=== PATIENT | female | born 1950 | race African-American/Black ===

== ENCOUNTER 2017-03-17 14:52 | Inpatient (IN) | payer MEDICARE, OTHER ==
[~2017-03-17] VITALS: Ht 154.9 cm; Wt 47.6 kg
--- NOTE | 2017-03-17 15:39 | NUR ---
PT BIB private Ambulance, reports pt has had increasing confusion and wandering. Pt has no complaints, no distress noted.
[2017-03-17 15:42] LABS: BASOPHILS % (AUTO) 0.4 % (0.0-2.0); EOSINOPHILS # (AUTO) 0.2 K/uL (0.0-0.7); EOSINOPHILS % (AUTO) 4.3 % (0.0-7.0); HEMATOCRIT 32.8 % (37-47); HEMOGLOBIN 10.4 G/DL (12.0-16.0); LYMPHOCYTES # (AUTO) 1.2 K/UL (0.8-4.8); LYMPHOCYTES % (AUTO) 25.8 % (20.5-51.5); MEAN CORPUSCULAR HGB CONC 32 g/dL (32.0-37.0); MEAN CORPUSCULAR VOLUME 100.8 FL (81.0-99.0); MONOCYTES # (AUTO) 0.3 K/UL (0.1-1.30); MONOCYTES % (AUTO) 5.9 % (0.0-11.0); NEUTROPHILS # (AUTO) 2.8 K/UL (1.8-8.9); NEUTROPHILS % (AUTO) 63.6 % (38.5-71.5); PLATELET COUNT (AUTO) 246 K/UL (150-450); RED BLOOD CELL COUNT(AUTO) 3.25 MIL/UL (4.2-5.4); WHITE BLOOD COUNT (AUTO) 4.5 K/UL (4.0-11.2)
[2017-03-17] MEDS ORDERED: FLUORESCEIN SODIUM 1 MG STRIP OP ONE (15:45)
[2017-03-17] MEDS ORDERED: TETRACAINE HCL 0.5% OPHT DROP 2 ML BOTTLE OP ONE (15:45)
[2017-03-17 15:52] LABS: CARBON DIOXIDE 30 mmol/L (21-32); CHLORIDE 104 mmol/L (98-107); CREATININE 0.8 mg/dL (0.6-1.3); GLUCOSE 115 mg/dL (74-106); POTASSIUM 4.5 mmol/L (3.5-5.1); UREA NITROGEN, BLOOD 13 mg/dL (7-18)
[2017-03-17] MEDS ORDERED: IBUP-1954 PO (15:54)
[2017-03-17] MEDS ORDERED: ABILIFY PO (15:54)
[2017-03-17] MEDS ORDERED: HYDR-3326 PO (15:54)
[2017-03-17] MEDS ORDERED: FLEXERIL PO (15:54)
[2017-03-17] MEDS ORDERED: HYDR25TA4 PO (15:54)
[2017-03-17] MEDS ORDERED: AMLO5TAB4 PO (15:54)
[2017-03-17] MEDS ORDERED: NITR100C11 PO (15:54)
[2017-03-17 15:58] LABS: ETHANOL < 3 MG/DL (0-0)
[2017-03-17] MEDS ORDERED: HYDROCODONE/APAP 5-325MG TABLET PO ONE (16:00)
[2017-03-17] MEDS ORDERED: HYDROCODONE/APAP 5-325MG TABLET ONE (16:03)
[2017-03-17 16:05] LABS: THYROID STIMULATING HORMONE 0.668 mIU/mL (0.358-3.740)
[2017-03-17 16:13] LABS: ACETAMINOPHEN < 2.0 ug/mL (10-30); ALANINE AMINOTRANSFERASE 17 U/L (14-59); ALKALINE PHOSPHATASE 77 U/L (50-136); ASPARTATE AMINOTRANSFERASE 18 U/L (15-37); BILIRUBIN,DIRECT 0.1 mg/dL (0.0-0.2); BILIRUBIN,TOTAL 0.3 mg/dL (0.2-1.0); TOTAL PROTEIN, SERUM 6.4 g/dL (6.4-8.2)
--- NOTE | 2017-03-17 16:17 | NUR ---
REFUSED CT/RADIOLOGY MD CHILD IS AWARE
[2017-03-17 16:34] LABS: *BILIRUBIN,URIN NEGATIVE (NEGATIVE); *BLOOD, URINE Trace-intact (NEGATIVE); *CLARITY,URINE CLEAR (CLEAR); *COLOR,URINE YELLOW (YELLOW); *KETONES,URINE NEGATIVE (NEGATIVE); *PROTEIN,URINE NEGATIVE (NEGATIVE); *UROBILINOGEN,URINE 0.2 E.U./dl (NORMAL); LEUKOCYTE ESTERASE ,URINE 1+ (NEGATIVE); NITRITE, URINE NEGATIVE (NEGATIVE); UGLUCOSE NEGATIVE (NEGATIVE)
[2017-03-17 16:42] LABS: *AMPHETAMINE, URINE NEGATIVE (NEGATIVE); *BARBITURATE, URINE NEGATIVE (NEGATIVE); *CANNABINOID, URINE NEGATIVE (NEGATIVE); *COCCAINE, URINE POSITIVE (NEGATIVE); *OPIATE, URINE POSITIVE (NEGATIVE); *PHENCYCLIDINE SCREEN,URINE NEGATIVE (NEGATIVE)
--- NOTE | 2017-03-17 16:43 | NUR ---
ATTEMPTED TO GIVE REPORT X 2. WILL CALL BACK
[2017-03-17 16:45] LABS: BACTERIA,URINE FEW /HPF (NONE SEEN); RBC,URINE 0-3 /HPF (0-3); SQUAMOUS EPITHELIAL CELL,UR FEW /HPF (NONE SEEN)
--- NOTE | 2017-03-17 16:49 | NUR ---
REPORT GIVEN TO NNAMDI AWARE OF PT'S CURRENT CONDITION. WILL CONTINUE FURTHER PLAN OF CARE.
[2017-03-17] MEDS ORDERED: MAGNESIUM HYDROXIDE 30 ML LIQUID UDC PO PRN (17:45)
[2017-03-17] MEDS ORDERED: LORAZEPAM 0.5 MG TABLET PO PRN (17:45)
[2017-03-17] MEDS ORDERED: ACETAMINOPHEN 325 MG TABLET PO PRN (17:45)
[2017-03-17] MEDS ORDERED: FLEXERIL 10 MG PO PRN (19:00)
[2017-03-17 19:09] LABS: IRON, SERUM 152 ug/dL (50-175)
[2017-03-17] MEDS: NITROFURANTOIN/NITROFURAN MAC 100 MG CAPSULE PO SCH (20:23)
[2017-03-17] MEDS: HYDROCODONE/APAP 5-325MG TABLET PO PRN (20:24)
[2017-03-17 20:34] VITALS: BP 135/59
--- NOTE | 2017-03-18 00:06 | NUR ---
PATIENT IS A/O X2. SHE STATED THAT SHE CONTINUE HEARING VOICES TELLING HER TO "WALK INTO TRAFFIC". SHE ALSO STATED THAT THE VOICES ARE ALSO "CALLING HER NAMES". HOWEVER, SHE DENIED SI OR PLAN TO HARM HERSELF. PATIENT IS TAKING MACROBID 100MG FOR UTI. PATIENT WAS REDIRECTED. SHE C/O LOWER BACK PAIN 9/10 IN THE PAIN INTENSITY SCALE. NORCO 5/325MG WAS GIVEN FOR PAIN. REASSESSMENT WAS EFFECTIVE. PATIENT IS RESTING IN HER BED COMFORTABLE. SHE IS MEDICATION COMPLIANT AT THIS TIME.
[2017-03-18] MEDS: HYDROCODONE/APAP 5-325MG TABLET PO PRN ×4 (03:27→23:02)
[2017-03-18 07:30] VITALS: BP 170/74
[2017-03-18] MEDS: HYDROCHLOROTHIAZIDE 25 MG TABLET PO SCH (08:18)
[2017-03-18] MEDS: NITROFURANTOIN/NITROFURAN MAC 100 MG CAPSULE PO SCH ×2 (08:18→20:08)
[2017-03-18] MEDS: AMLODIPINE 5 MG TABLET PO SCH (08:18)
[2017-03-18] MEDS ORDERED: NITROFURANTOIN/NITROFURAN MAC 100 MG CAPSULE PO SCH (09:00)
[2017-03-18] MEDS ORDERED: hydrALAZINE HCL 25 MG TABLET PO PRN (11:00)
[2017-03-18] MEDS: CYCLOBENZAPRINE HCL 10 MG TABLET PO PRN ×2 (14:41→20:45)
[2017-03-18 16:00] VITALS: BP 135/66
[2017-03-18 20:39] VITALS: BP 138/63
[2017-03-18] MEDS: TRAZODONE 50 MG TABLET PO SCH (21:14)
[2017-03-18] MEDS: risperiDONE 1 MG TABLET PO SCH (21:14)
[2017-03-18] MEDS ORDERED: TRAZODONE 50 MG TABLET ONE (21:21)
[2017-03-18] MEDS ORDERED: risperiDONE 1 MG TABLET ONE (21:21)
--- NOTE | 2017-03-19 01:05 | NUR ---
GPS: Pt.is awake,agitated,demanding and easily irritable at this time. Re-directed prn. Refused Ativan 1mg PO for anxiety/agitation when offered. Will continue to monitor for further escalation of behavior.
[2017-03-19] MEDS: LORAZEPAM 1 MG TABLET PO PRN (02:49)
[2017-03-19 07:30] VITALS: BP 131/77
[2017-03-19] MEDS: AMLODIPINE 5 MG TABLET PO SCH (09:07)
[2017-03-19] MEDS: risperiDONE 1 MG TABLET PO SCH ×2 (09:08→20:05)
[2017-03-19] MEDS: NITROFURANTOIN/NITROFURAN MAC 100 MG CAPSULE PO SCH ×2 (09:08→20:05)
[2017-03-19] MEDS: NICOTINE 14 MG/24HR PATCH TD SCH (09:08)
[2017-03-19] MEDS: HYDROCHLOROTHIAZIDE 25 MG TABLET PO SCH (09:08)
--- NOTE | 2017-03-19 11:10 | NUR ---
1050 Discharged instructions given to patient and son regarding medications to continue at home, both of them verbalized understanding. psychiatris medications called in to patient pharmacy. 1055 Brought patient to parking area per w/c , alert and ox3, denies SI/HI, no hallucinations/ no delusions noted. 1100 Patient went home with son via private car stable condition. Addendum: 03/19/17 at 1158 by [facility] BRANDON DAHL Disregard charted wrong patient.
[2017-03-19] MEDS: CARISOPRODOL 350 MG TABLET PO PRN ×2 (12:12→20:57)
[2017-03-19 15:00] VITALS: BP 107/66
[2017-03-19] MEDS: HYDROCODONE/APAP 5-325MG TABLET PO PRN ×2 (15:27→23:25)
--- NOTE | 2017-03-19 17:21 | NUR ---
TRIGGED FOR LOW BMI 18.5. PATIENT IS 66 Y/O FEMALE WHO PRESENT FOR BEHAVIOR ESCALATION HX: HTN,UTI,SCHIZOPHRENIA, SUBSTANCE USE,MRSA TOLERATING CURRENT DIET(REGULAR)EATING 75-100% OF MEALS BMI 18.5-UNDERWEIGHT,PHYSICAL ASSESSMENT REPORT SUGGEST MILD/MODERATE FAT AND MUSCLE LOSS PATIENT IS RECEIVING BOOST ONCE,REC CONTINUE WITH CURRENT DIETARY SUPPLEMENT BOWEL SOUND PRESENT SKIN INTACT LABS:03/17 RBC-3.25,HGB/HCT-10.4/32.8 NUTRITION DIAGNOSIS UNDERWEIGHT RELATED TO ALTERED MENTAL STATUS EVIDENCED BY BMI 18.5 INTERVENTION ENCOURAGE GOOD PO INTAKE,BOOST ONCE MONITOR;PO INTAKE,WT,NEW LABS Addendum: 03/19/17 at [address] Amended: Links added.
[2017-03-19] MEDS: TRAZODONE 50 MG TABLET PO SCH (20:04)
[2017-03-19 20:14] VITALS: BP 112/58
[2017-03-20] MEDS: HYDROCODONE/APAP 5-325MG TABLET PO PRN ×3 (06:36→23:53)
--- NOTE | 2017-03-20 06:45 | NUR ---
PT C/O LOWER BACK PAIN AND REQUESTED FOR NORCO, MED GIVEN ORDERED.
[2017-03-20 07:30] VITALS: BP 111/61
[2017-03-20 08:08] LABS: BILIRUBIN,TOTAL 0.5 mg/dL (0.2-1.0); CREATININE 0.8 mg/dL (0.6-1.3); MAGNESIUM 1.7 mg/dL (1.8-2.4); POTASSIUM 4.6 mmol/L (3.5-5.1); TOTAL PROTEIN, SERUM 6.4 g/dL (6.4-8.2)
[2017-03-20] MEDS: AMLODIPINE 5 MG TABLET PO SCH (08:14)
[2017-03-20] MEDS: risperiDONE 1 MG TABLET PO SCH ×2 (08:14→20:22)
[2017-03-20] MEDS: NITROFURANTOIN/NITROFURAN MAC 100 MG CAPSULE PO SCH ×2 (08:14→20:22)
[2017-03-20] MEDS: HYDROCHLOROTHIAZIDE 25 MG TABLET PO SCH (08:15)
[2017-03-20 08:21] LABS: BASOPHILS % (AUTO) 0.9 % (0.0-2.0); EOSINOPHILS # (AUTO) 0.3 K/uL (0.0-0.7); EOSINOPHILS % (AUTO) 7.4 % (0.0-7.0); HEMATOCRIT 31.3 % (31.2-41.9); HEMOGLOBIN 10.2 g/dL (10.9-14.3); LYMPHOCYTES # (AUTO) 1.2 K/uL (20.0-40.0); LYMPHOCYTES % (AUTO) 32.6 % (20.5-51.5); MEAN CORPUSCULAR HEMOGLOBIN 32.5 uug (24.7-32.8); MEAN CORPUSCULAR HGB CONC 33 g/dL (32.3-35.6); MEAN CORPUSCULAR VOLUME 99.4 fL (75.5-95.3); MONOCYTES # (AUTO) 0.3 K/uL (2.0-10.0); MONOCYTES % (AUTO) 8.4 % (0.0-11.0); NEUTROPHILS # (AUTO) 1.9 K/uL (1.8-8.9); NEUTROPHILS % (AUTO) 50.7 % (38.5-71.5); PLATELET COUNT (AUTO) 212 K/uL (179-408); RED BLOOD CELL COUNT(AUTO) 3.15 MIL/uL (3.63-4.92); WHITE BLOOD COUNT (AUTO) 3.7 K/uL (3.8-11.8)
[2017-03-20] MEDS: NICOTINE 14 MG/24HR PATCH TD SCH (08:21)
[2017-03-20] MEDS ORDERED: MAGNESIUM OXIDE 400 MG TABLET PO ONE (10:30)
[2017-03-20] MEDS: LORAZEPAM 1 MG TABLET PO PRN (11:45)
[2017-03-20 15:00] VITALS: BP 129/74
--- NOTE | 2017-03-20 15:07 | NUR ---
Initial discharge instructions: Pt reports to reside at home with her daughter [[address], [place],[address]].Per pt,she would like to return home upon discharge.IVORY attempted to contact pt's daughter, Aydee Smith [phone] multiple times and has left voicemail,but no answer.IVORY will speak with pt,family,and MD regarding appropriate discharge plans.IVORY will form a safe and proper discharge.
[2017-03-20] MEDS: TRAZODONE 50 MG TABLET PO SCH (20:22)
[2017-03-20] MEDS: CARISOPRODOL 350 MG TABLET PO PRN (20:27)
[2017-03-20 21:05] VITALS: BP 116/68
[2017-03-21] MEDS: CARISOPRODOL 350 MG TABLET PO PRN ×3 (02:31→22:07)
[2017-03-21 07:30] VITALS: BP 121/68
[2017-03-21] MEDS: HYDROCHLOROTHIAZIDE 25 MG TABLET PO SCH (08:19)
[2017-03-21] MEDS: NITROFURANTOIN/NITROFURAN MAC 100 MG CAPSULE PO SCH (08:19)
[2017-03-21] MEDS: AMLODIPINE 5 MG TABLET PO SCH (08:19)
[2017-03-21] MEDS: NICOTINE 14 MG/24HR PATCH TD SCH (08:20)
[2017-03-21] MEDS: risperiDONE 1 MG TABLET PO SCH ×2 (08:20→20:45)
[2017-03-21 15:13] VITALS: BP 129/73
[2017-03-21] MEDS: HYDROCODONE/APAP 5-325MG TABLET PO PRN (19:39)
[2017-03-21 20:06] VITALS: BP 123/65
[2017-03-21] MEDS: TRAZODONE 50 MG TABLET PO SCH (20:45)
--- NOTE | 2017-03-22 01:44 | NUR ---
Pt AWOKE AGITATED, YELLING AND SCREAMING. Pt DEMANDED MORE PAIN MEDICATION AND MORE SNACKS. Pt EDUCATED ON MEDICATION FREQUENCY AND THAT SNACK TIME IS OVER, SHE'D ALREADY HAD SEVERAL SNACKS AND JUICES THROUGHOUT THE SHIFT. Pt BECAME VERBALLY ABUSIVE AND YELLED, "FUCK YOU BITCH, YOU'RE !" TO THIS CUSTOMER ACCOUNT COORDINATOR. Pt BECOMES AGGRESSIVE WHEN LIMITS ARE SET, REQUIRES FREQUENT REDIRECTION.
[2017-03-22] MEDS: HYDROCODONE/APAP 5-325MG TABLET PO PRN ×2 (03:56→16:24)
[2017-03-22] MEDS: MAG HYDROX/AL HYDROX/SIMETH 30 ML LIQUID UDC PO PRN (04:41)
--- NOTE | 2017-03-22 05:41 | NUR ---
Pt C/O STOMACH UPSET AND HEARTBURN. MAALOX 30ml ADMINISTERED WITH GOOD EFFECT.
[2017-03-22 07:30] VITALS: BP 128/75
[2017-03-22] MEDS: NICOTINE 14 MG/24HR PATCH TD SCH (08:46)
[2017-03-22] MEDS: HYDROCHLOROTHIAZIDE 25 MG TABLET PO SCH (08:46)
[2017-03-22] MEDS: risperiDONE 1 MG TABLET PO SCH ×2 (08:47→20:17)
[2017-03-22] MEDS: AMLODIPINE 5 MG TABLET PO SCH (08:47)
[2017-03-22] MEDS: CARISOPRODOL 350 MG TABLET PO PRN (09:53)
[2017-03-22 15:18] VITALS: BP 128/64
--- NOTE | 2017-03-22 19:31 | NUR ---
PHARMACY NOTE: Pt REQUESTED A SOMA FOR 710 MUSCLE PAIN. SOMA 350mg WAS GIVEN TO Pt. UPON CHECKING Pt's WATER CUP, IT WAS NOTED Pt SPIT THE MEDICATION OUT INTO HER CUP. Pt STATED SHE "WANTED TO SAVE IT FOR LATER." SOMA WAS DISSOLVED INTO THE WATER BY THE TIME IT WAS NOTICED, RN UNABLE TO WASTE. MEDICAL ASSISTANT SECRETARY INTIRA AWARE.
[2017-03-22 20:06] VITALS: BP 121/55
--- NOTE | 2017-03-22 20:15 | NUR ---
PHARMACY NOTE: Pt STATED SHE WOULD TAKE HER REGULARLY SCHEDULED HS MEDS. RN SCANNED MEDS, OPENED THEM AND BROUGHT THEM TO HER FOR ADMINISTRATION, AT THAT TIME Pt REFUSED AND STATED, "GET THE HELL OUT OF MY ROOM." ADMITTED ATTORNEYS AWARE.
[2017-03-22] MEDS: TRAZODONE 50 MG TABLET PO SCH (20:17)
[2017-03-22] MEDS: TEMAZEPAM 7.5 MG CAPSULE PO PRN (21:37)
--- NOTE | 2017-03-23 06:34 | NUR ---
REFUSED SHOWER THIS MORNING. SLEPT 7 HOURS.
--- NOTE | 2017-03-23 08:28 | NUR ---
Poured Wall Foreman: SW has attempted to contact patient's daughter, Aydee Smith [phone] multiple times and have left voicemail's requesting a call back to discuss discharge plans. 03/17/17- SW called and left a voicemail. 03/19/17- SW called twice, but no answer. 03/20/17- SW called and left a second voicemail. 03/23/17- SW called and call was ignored to voicemail. SW left a third voicemail. Patient is not alert and oriented to provide any further family contact.
[2017-03-23] MEDS: risperiDONE 1 MG TABLET PO SCH ×2 (09:34→20:21)
[2017-03-23] MEDS: HYDROCHLOROTHIAZIDE 25 MG TABLET PO SCH (09:34)
[2017-03-23] MEDS: AMLODIPINE 5 MG TABLET PO SCH (09:34)
[2017-03-23] MEDS: NICOTINE 14 MG/24HR PATCH TD SCH (09:35)
[2017-03-23] MEDS: HYDROCODONE/APAP 5-325MG TABLET PO PRN ×3 (09:36→22:55)
--- NOTE | 2017-03-23 10:00 | NUR ---
Pt was asking for pain meds. Pt only took her NORCO meds. Pt was refusing her psych and routine meds. Spoke with pt and bargained with patient. Pt then took her medications.
[2017-03-23 10:57] VITALS: BP 135/71
[2017-03-23 16:00] VITALS: BP 139/65
--- NOTE | 2017-03-23 17:45 | NUR ---
GPS: NURSING NOTES: THOUGHT DISORDER: Pt hyperverbal talking to herself while walking in hallway through out the day.
[2017-03-23] MEDS: CARISOPRODOL 350 MG TABLET PO PRN (20:21)
[2017-03-23 20:30] VITALS: BP 132/61
[2017-03-23] MEDS ORDERED: TRAZODONE 100 MG TABLET PO SCH (21:00)
--- NOTE | 2017-03-23 22:00 | NUR ---
received to care, lying in bed, mostly isolative, but pleasant and cooperative, upon approach. no interactions noted with peers, but able to make her needs known, to staff. denies hearing voices, but was observed talking to herself. DEBORAH chapo was given at 2020, for lower back pain 01/15. by 2120, she reported good relief, 09/15. as of 2199, she appears to be asleep. no distress noted. will continue to monitor closely.
--- NOTE | 2017-03-23 22:55 | NUR ---
PRN norco given for lower back pain 01/15.
[2017-03-24] MEDS: TEMAZEPAM 7.5 MG CAPSULE PO PRN (01:13)
--- NOTE | 2017-03-24 01:13 | NUR ---
PRN restoril given for insomnia
--- NOTE | 2017-03-24 01:40 | NUR ---
appears to be asleep. no distress noted.
[2017-03-24] MEDS: HYDROCODONE/APAP 5-325MG TABLET PO PRN ×2 (06:04→14:50)
--- NOTE | 2017-03-24 06:43 | NUR ---
slept 5.5 hours, total. is now awake. asssited with AM care, and shower. PRN norco given at 0604, for lower back pain 02/15, with good results. no distress noted. will continue to monitor closely.
[2017-03-24] MEDS: MAG HYDROX/AL HYDROX/SIMETH 30 ML LIQUID UDC PO PRN (07:29)
[2017-03-24 07:30] VITALS: BP 121/65
[2017-03-24] MEDS: AMLODIPINE 5 MG TABLET PO SCH (08:44)
[2017-03-24] MEDS: HYDROCHLOROTHIAZIDE 25 MG TABLET PO SCH (08:44)
[2017-03-24] MEDS: NICOTINE 14 MG/24HR PATCH TD SCH (08:44)
[2017-03-24] MEDS ORDERED: risperiDONE 0.5 MG TABLET PO SCH (09:00)
[2017-03-24] MEDS: CARISOPRODOL 350 MG TABLET PO PRN (09:14)
--- NOTE | 2017-03-24 15:13 | NUR ---
DC Note: Patient will be discharged to [facility] [[place] [address];[phone]] via ambulance at 4:00 pm. Spoke with Barbara at the facility who stated they would accept the patient today. Patient is aware and agreeable with going to SNF for short term. SW spoke with patient's daughter, Aydee [phone] at 2:33 pm who reported the patient may return home or go to SNF. Daughter is unreliable and reported the SW could call and leave a voicemail if patient is discharged and "someone" would be home to open the home for the patient. However, due to this being an unsafe discharge plan placement was arranged. Daughter did not hand picker calls after, therefore SW left a voicemail including discharge plans. Patient will follow-up with (Mercantile Agent) and (Psychiatrist) at the facility. Patient was provided with a brief substance abuse intervention and referred to [facility] , [facility] , and [facility] . For smoking cessation, patient was referred to [employer] 800-LUNGUSA and [employer] [phone]. Addendum: 03/24/17 at 1601 by AUBREY DODSON Spoke with patient's daughter, Aydee [phone] at 4:00 pm she agreed to SNF placement for short term. IVORY filed an APS report for self neglect (Intake ID # [id number]]
[2017-03-24 16:16] VITALS: BP 134/70
--- NOTE | 2017-03-24 16:25 | NUR ---
PT IS BEING DISCHARGED. CALLED [employer] TO CANCEL WRIT HEARING ([phone]). THE TELEPHONE HOURS [phone]. NO ANSWERING MACHINE AVAILABLE. WILL ENDORSE TO NOTIFY TOMORROW
--- NOTE | 2017-03-24 17:05 | NUR ---
Pt D/C to [facility] with exit care packet, all belongings, and valuables. Pt is calm, cooperative, vital signs stable, skin intact, pt denies suicidal ideation and contracts for safety inside and outside the hospital. Report was given to Juana DAHL electronic coils supervisor at [facility]. Dr. Schaeffer (psychiatrist) and Paola (industrial paramedic) will continue with after care at the facility.
== END 2017-03-24 17:39 | DRG 885 ==
LOC: ER 14:52 → GPS 16:28
PROVIDERS: ADMIT Psychiatry & Neurology Psychiatry; ATTEND Internal Medicine
DX: F25.9 Schizoaffective disorder, unspecified (principal); E44.0 Moderate protein-calorie malnutrition; E83.39 Other disorders of phosphorus metabolism; E83.42 Hypomagnesemia; M41.9 Scoliosis, unspecified; R45.851 Suicidal ideations; F29 Unspecified psychosis not due to a substance or known physiological condition; N39.0 Urinary tract infection, site not specified; Z68.1 Body mass index [BMI] 19.9 or less, adult; F31.9 Bipolar disorder, unspecified; F17.210 Nicotine dependence, cigarettes, uncomplicated; D53.9 Nutritional anemia, unspecified; D72.819 Decreased white blood cell count, unspecified; I51.7 Cardiomegaly; G89.29 Other chronic pain; Z86.14 Personal history of Methicillin resistant Staphylococcus aureus infection; Z87.440 Personal history of urinary (tract) infections; Z90.49 Acquired absence of other specified parts of digestive tract; Z91.5 Personal history of self-harm; Z88.0 Allergy status to penicillin; R73.9 Hyperglycemia, unspecified; F14.11 Cocaine abuse, in remission; R82.6 Abnormal urine levels of substances chiefly nonmedicinal as to source
CPT/HCPCS: 36415; 70030-TC; 71010; 73560; 80307; 83550; 83605; 83735; 84100; 84443; 85025; 85730; 87040; 87086; 93005; 97116; 97530; A4663; G0480; G0480-TC

== ENCOUNTER 2021-12-04 14:11 | Inpatient (IN) | payer MEDICARE, OTHER ==
[~2021-12-04] VITALS: Ht 152.4 cm; Wt 45.4 kg
[~2021-12-04 14:11] MED LIST: AMLO5TAB4 PO; FLEXERIL PO; HYDR-3326 PO; HYDR25TA4 PO; IBUP-1954 PO; NITR100C11 PO
[2021-12-04] MEDS ORDERED: HYDROCODONE/APAP 5-325MG TABLET PO ONE (14:30)
[2021-12-04] MEDS ORDERED: CARISOPRODOL 350 MG TABLET PO ONE (14:30)
[2021-12-04] MEDS ORDERED: HYDROCODONE/APAP 5-325MG TABLET ONE (14:37)
[2021-12-04] MEDS ORDERED: CARISOPRODOL 350 MG TABLET ONE (14:37)
--- NOTE | 2021-12-04 14:39 | NUR ---
PT IS IN ROOM #5a. DR STOUT EVALUATED THE PT.
--- NOTE | 2021-12-04 14:48 | NUR ---
Pt is resting in bed,speaking on the phone.
[2021-12-04] MEDS ORDERED: PARO20TA7 PO (14:51)
[2021-12-04] MEDS ORDERED: BISA10SU61 RC (14:51)
[2021-12-04] MEDS ORDERED: MULT-594 PO (14:51)
[2021-12-04] MEDS ORDERED: ASPI81TA31 PO (14:51)
[2021-12-04] MEDS ORDERED: TEMA15CA PO (14:51)
[2021-12-04] MEDS ORDERED: AMLO10TA59 PO (14:51)
[2021-12-04] MEDS ORDERED: LISI10TA29 PO (14:51)
[2021-12-04] MEDS ORDERED: MAGN400O6 PO (14:51)
[2021-12-04] MEDS ORDERED: OLAN5TAB3 PO (14:51)
[2021-12-04] MEDS ORDERED: ACET-2154 PO (14:51)
[2021-12-04] MEDS ORDERED: ATOR20TA PO (14:51)
[2021-12-04] MEDS ORDERED: HYDR-3980 PO (14:51)
[2021-12-04] MEDS ORDERED: FAMO40TA7 PO (14:51)
[2021-12-04] MEDS ORDERED: NA P133E RC (14:51)
[2021-12-04] MEDS ORDERED: BACL10TA PO (14:51)
[2021-12-04] MEDS ORDERED: BISM262T15 PO (14:51)
[2021-12-04] MEDS ORDERED: LORAZEPAM 1 MG TABLET ONE (14:54)
[2021-12-04] MEDS ORDERED: LORAZEPAM 0.5 MG TABLET PO ONE (15:00)
[2021-12-04 15:09] LABS: *BILIRUBIN,URIN NEGATIVE (NEGATIVE); *CLARITY,URINE CLEAR (CLEAR); *COLOR,URINE YELLOW (YELLOW); *KETONES,URINE NEGATIVE (NEGATIVE); *UROBILINOGEN,URINE 0.2 E.U./dl (NORMAL); LEUKOCYTE ESTERASE ,URINE 1+ (NEGATIVE); NITRITE, URINE NEGATIVE (NEGATIVE); UGLUCOSE NEGATIVE (NEGATIVE)
[2021-12-04 15:12] LABS: *BLOOD, URINE TRACE (NEGATIVE)
[2021-12-04 15:17] LABS: *AMPHETAMINE, URINE NEGATIVE (NEGATIVE); *CANNABINOID, URINE NEGATIVE (NEGATIVE); *COCCAINE, URINE NEGATIVE (NEGATIVE); *OPIATE, URINE POSITIVE (NEGATIVE); *PHENCYCLIDINE SCREEN,URINE NEGATIVE (NEGATIVE)
--- NOTE | 2021-12-04 16:02 | NUR ---
PT is medically cleared by Dr Montano. Left massage for PET, Kaitlin Vieyra CATALYST UNIT OPERATOR.
[2021-12-04 16:03] LABS: HEMATOCRIT 34.4 % (31.2-41.9); MEAN CORPUSCULAR HEMOGLOBIN 32.8 uug (24.7-32.8); MEAN CORPUSCULAR VOLUME 100.9 fL (75.5-95.3); PLATELET COUNT (AUTO) 199 K/uL (179-408)
--- NOTE | 2021-12-04 16:14 | NUR ---
Spoke to PET fill plant operator, ETA 30-40 min.
[2021-12-04 16:15] LABS: CARBON DIOXIDE 29 mmol/L (21-32); CHLORIDE 102 mmol/L (98-107); CREATININE 0.8 mg/dL (0.6-1.3); GLUCOSE 99 mg/dL (74-106); POTASSIUM 5.1 mmol/L (3.5-5.1); UREA NITROGEN, BLOOD 27 mg/dL (7-18)
--- NOTE | 2021-12-04 16:15 | NUR ---
Provided snack pt ate w/ good appetite, watching TV.
[2021-12-04 16:21] LABS: ACETAMINOPHEN 3.9 ug/mL (10-30); ALANINE AMINOTRANSFERASE 25 U/L (14-59); ALKALINE PHOSPHATASE 83 U/L (50-136); ASPARTATE AMINOTRANSFERASE 16 U/L (15-37); BILIRUBIN,TOTAL 0.2 mg/dL (0.2-1.0); TOTAL PROTEIN, SERUM 6.9 g/dL (6.4-8.2)
[2021-12-04 17:02] LABS: BACTERIA,URINE FEW /HPF (NONE SEEN); RBC,URINE 0-3 /HPF (0-3); SQUAMOUS EPITHELIAL CELL,UR FEW /HPF (NONE SEEN)
[2021-12-04] MEDS ORDERED: LORAZEPAM 2 MG/1 ML VIAL ONE (17:08)
[2021-12-04] MEDS ORDERED: OLANZAPINE 10 MG VIAL IM ONE ×2 (17:08→17:30)
--- NOTE | 2021-12-04 17:20 | NUR ---
Kaitlin Vieyra LCSW evauated the pt. Pt placed on hold by PET information and data architect analyst for DTO and GD.
[2021-12-04] MEDS ORDERED: LORAZEPAM 2 MG/1 ML VIAL IM ONE (17:30)
--- NOTE | 2021-12-04 17:48 | NUR ---
Pt transfered to MHU room 137A, via [facility].
[2021-12-04 18:00] VITALS: BP 145/74
[2021-12-04] MEDS ORDERED: ACETAMINOPHEN 325 MG TABLET PO PRN (18:00)
[2021-12-04] MEDS ORDERED: ZOLPIDEM 5 MG TABLET PO PRN (18:00)
[2021-12-04] MEDS ORDERED: MAGNESIUM HYDROXIDE 30 ML LIQUID UDC PO PRN (18:00)
--- NOTE | 2021-12-04 18:25 | NUR ---
Admitted a case of 70 years old female from ER [facility] with history of hypertension, Gerd, and Scoliosis. Patient previously diagnosed with Psychosis. Patient is on 5150 status. Patient arrived in a wheelchair accompanied by ER SALES OUTFITTER. Initial report given by Valeria. On admission patient was cooperative to physical assessment and vital signs. Skin body assessment revealed no significant skin integrity breakdown. Vital signs within normal limits. Patient presents lower extremities weakness. Upon face to face patient appeared alert, oriented to self, confused, uncooperative. Patient denies any suicidal or homicidal ideations. Patient could not comprehend and was unable to sign and consent to all admission documents. Pt. was offered brief orientation to unit rules and policy and given a copy of patient's rights handbook. Patient belongings were accounted and no contrabands found. Psychiatrist Maksim and Medical Physician Isis were informed and orders were carried out. Patient is currently free from pain or any discomfort. Reassurance given. Fall and safety precautions implemented.
[2021-12-04] MEDS ORDERED: BLOOD SUGAR DIAGNOSTIC 1 EACH STRIP VI ONE (18:30)
[2021-12-04 20:30] VITALS: BP 145/52
[2021-12-05] MEDS ORDERED: TEMAZEPAM 15 MG CAPSULE PO PRN (01:15)
--- NOTE | 2021-12-05 06:06 | NUR ---
Slept well, most of night. Woke up twice, and was assisted to go to the bathroom. Gait was very unsteady. Bed alarm on, for safety. Was easily agitated. Demanded PRN [place] for severe back pain 01/15. Order was obtained, but she fell asleep, before it could be given. Remains asleep, Will continue to monitor closely.
--- NOTE | 2021-12-05 06:36 | NUR ---
AT 2133 attempted to give EKG to the patient and the nurse said not to disturb the patient. That she gave the patient meds.
[2021-12-05] MEDS: HYDROCODONE/APAP 5-325MG TABLET PO PRN ×2 (06:56→12:59)
[2021-12-05 07:30] VITALS: BP 100/46
[2021-12-05] MEDS: NITROFURANTOIN/NITROFURAN MAC 100 MG CAPSULE PO SCH ×2 (08:53→21:59)
[2021-12-05] MEDS: BACLOFEN 10 MG TABLET PO SCH ×2 (08:54→17:49)
[2021-12-05] MEDS: ASPIRIN 81 MG TAB.CHEW PO SCH (08:54)
[2021-12-05] MEDS: MULTIVITAMINS,THERAPEUTIC TABLET PO SCH (08:54)
[2021-12-05] MEDS: NICOTINE 21 MG/24HR PATCH TD SCH (08:55)
[2021-12-05] MEDS: AMLODIPINE 10 MG TABLET PO SCH (09:00)
[2021-12-05] MEDS ORDERED: BISACODYL 10 MG SUPP.RECT RC PRN (09:00)
[2021-12-05] MEDS: LISINOPRIL 10 MG TABLET PO SCH (09:00)
[2021-12-05] MEDS: FAMOTIDINE 20 MG TABLET PO SCH (09:15)
--- NOTE | 2021-12-05 09:24 | NUR ---
GPS: PT RECEIVED WHEELING ON A WHEELCHAIR, PACING ALONG THE HALLWAY AND TO THE ACTIVITY ROOM. PT VERY NEEDY AND ATTENTION SEEKER. PT SEEN BY PHYSICAL THERAPY FOR EVALUATION AND PER THERAPIST, PT WAS NOT FOLLOWING COMMAND AND JUST LIKE TO STAY ON HER WHEELCHAIR. NO AGITATION NOTED AT THIS TIME. PT ALERT TO NAME AND ABLE TO MAKE NEEDS KNOWN. SEEN PT TODAY AND WILL ORDER SOMA PER PT REQUEST. COMPLIANT WITH MEDS.
[2021-12-05] MEDS ORDERED: HYDROCODONE/APAP 10-325 MG TABLET PO PRN (10:30)
[2021-12-05] MEDS ORDERED: FLEET ENEMA 133 ML BOTTLE RC PRN (10:30)
[2021-12-05] MEDS ORDERED: ACETAMINOPHEN 325 MG TABLET-SA PATIENTS-PAIN ONLY PO PRN (10:30)
[2021-12-05] MEDS ORDERED: MAGNESIUM HYDROXIDE 30 ML LIQUID UDC PO PRN (10:30)
[2021-12-05] MEDS ORDERED: BISMUTH SUBSALICYLATE 262 MG PO SCH (10:30)
[2021-12-05] MEDS ORDERED: BISMUTH SUBSALICYLATE 262 MG/15 ML UDC PO PRN (10:30)
[2021-12-05] MEDS: risperiDONE 1 MG TABLET PO SCH ×2 (12:36→17:49)
[2021-12-05] MEDS: DIVALPROEX 250 MG TABLET.DR PO SCH ×2 (12:36→17:49)
--- NOTE | 2021-12-05 14:15 | NUR ---
GPS: CALLED DAUGHTER WINDY ABOUT PT ADMISSION HERE IN THE FACILITY.
[2021-12-05 15:23] VITALS: BP 91/49
--- NOTE | 2021-12-05 18:15 | NUR ---
GPS: PT HAD A GOOD NAP THIS AFTERNOON IN HER BED. AFTER DINNER, PT WHEELING ON THE HALLWAY, ATTENTION SEEKER, ALWAYS ASKING IF HER PAIN MED NORCO IS DUE FOR ANOTHER ONE. EXPLAINED TO PT ABOUT THE FREQUENCY AND DOSE GIVEN. PT HYPERVERBAL AND ALSO VERBALLY ABUSIVE TO STAFF SPECIALLY IF NEEDS ARE NOT MET INSTANTLY. PT ABLE TO TRANSFER SELF FROM WHEELCHAIR TO BED AND VICE VERSA. ALSO ABLE TO DO TOILETING INDEPENDENTLY. PT EASILY GETS IRRITATED. PT ALSO NOTED TALKING TO SELF.
[2021-12-05 20:00] VITALS: BP 132/62
[2021-12-05] MEDS: LORAZEPAM 1 MG TABLET PO PRN (21:35)
[2021-12-05] MEDS: ATORVASTATIN 20 MG TABLET PO SCH (21:59)
[2021-12-06] MEDS: HYDROCODONE/APAP 5-325MG TABLET PO PRN ×4 (00:03→18:37)
[2021-12-06] MEDS: LORAZEPAM 1 MG TABLET PO PRN (05:45)
--- NOTE | 2021-12-06 06:40 | NUR ---
Received to care, pleasant, but needy and demanding. Frequent limit setting was done. Requested multiple snacks, multiple times. Became verbally hostile and belligerent when her needs were not met to her satisfaction. Attempted to split staff members. Attempted to escalate her room mate, to the point of requiring her to be moved to another room. She made a mess of both rooms she was in, dropping food and empty pudding, food wrappers, and milk containers on the floor, which was dirty and sticky. She was assisted with a shower, this morning. PRN [place] and Ativan were both given twice. Ambien was given for insomnia, but she only slept a short time. This morning, she continues with same behaviors, and difficult to redirect. Continues to require frequent limit setting, and continually attempts to test the rules, and limits of what she can get away with. Monitored closely by staff.
[2021-12-06 07:11] LABS: MEAN CORPUSCULAR HEMOGLOBIN 33.7 uug (24.7-32.8); PLATELET COUNT (AUTO) 202 K/uL (179-408)
[2021-12-06 07:30] VITALS: BP 128/57
[2021-12-06] MEDS: DIVALPROEX 250 MG TABLET.DR PO SCH ×3 (08:22→16:24)
[2021-12-06] MEDS: MULTIVITAMINS,THERAPEUTIC TABLET PO SCH (08:22)
[2021-12-06] MEDS: ASPIRIN 81 MG TAB.CHEW PO SCH (08:22)
[2021-12-06] MEDS: AMLODIPINE 10 MG TABLET PO SCH (08:28)
[2021-12-06] MEDS: FAMOTIDINE 20 MG TABLET PO SCH (08:29)
[2021-12-06] MEDS: NICOTINE 21 MG/24HR PATCH TD SCH (08:30)
[2021-12-06] MEDS: NITROFURANTOIN/NITROFURAN MAC 100 MG CAPSULE PO SCH ×2 (08:34→20:21)
[2021-12-06] MEDS: BACLOFEN 10 MG TABLET PO SCH ×2 (08:49→16:24)
[2021-12-06] MEDS: risperiDONE 2 MG TABLET PO SCH ×3 (09:00→16:24)
[2021-12-06] MEDS: ENSURE WITH FIBER 237 ML LIQUID (CHOCOLATE) PO SCH ×3 (09:00→16:24)
[2021-12-06] MEDS: LISINOPRIL 10 MG TABLET PO SCH (09:29)
[2021-12-06 10:29] LABS: POTASSIUM 4.7 mmol/L (3.5-5.1)
[2021-12-06] MEDS: CARISOPRODOL 350 MG TABLET PO PRN ×2 (10:30→20:21)
--- NOTE | 2021-12-06 10:47 | NUR ---
Gps/Wireless Telegrapher- Needy,constantly asking for something(i.e tea, juice, snacks) limit setting encouraged , informed. Encouraged to stay in her group therapy. Remains in her wheel chair roaming around staying in front of the Nurses station., constantly needing redirections.
--- NOTE | 2021-12-06 15:15 | NUR ---
IVORY Initial Discharge Note: Pt currently resides at [address] [address] ([phone]). IVORY spoke with the nursing yard supervisor cotton gin, Rozina at the facility who states that pt is welcome back upon discharge. There is no family contact at this time. IVORY will continue to work with pt and MD to ensure a safe and proper discharge plan.
--- NOTE | 2021-12-06 15:19 | NUR ---
Firearms Report: District Sales Leader completed and submitted a [employer] firearms report for 5150 a danger to others and grave disability certifications. A copy of report has been placed in patient chart.
--- NOTE | 2021-12-06 15:20 | NUR ---
SW Family Contact: Pt does not appear to have any family contact at this time.
[2021-12-06] MEDS: MAG HYDROX/AL HYDROX/SIMETH 30 ML LIQUID UDC PO PRN (15:42)
[2021-12-06 16:27] VITALS: BP 96/55
--- NOTE | 2021-12-06 16:42 | NUR ---
Gps/Head Still Operator- Patient requesting to use the phone , wants to talk to Norma (daughter) [phone], patient unable to get through . Limit phone calls, patient constantly asking for the portable phone ..Seen and observed patient walking around back and fort to day room to her room, or uses wheel chair most of the day
[2021-12-06 19:47] VITALS: BP 115/51
[2021-12-06] MEDS: ATORVASTATIN 20 MG TABLET PO SCH (20:21)
[2021-12-06] MEDS: MELATONIN 3 MG TABLET PO SCH (20:22)
[2021-12-07] MEDS: HYDROCODONE/APAP 5-325MG TABLET PO PRN ×2 (01:33→09:28)
--- NOTE | 2021-12-07 04:31 | NUR ---
Received patient in w/c, wheeling herself in and out of day room and nursing station. Patient pleasant upon greeted, A&Ox3, no apparent distress noted. Patient remains to be demanding as evidence by continuously asking for snacks, demanding the use of phone and switching channel on tv q15 minutes. Set limits and firm attitude applied. Re-oriented to unit rules. Patient to be verbally hostile with staff if demands are not met. Patient is noted to be manipulative and will push boundaries. Patient is unkempt looking. Soma given as per her request d/t muscle pain. compliant with medications. [place] given PRN for back pain. Patient intermittently sleeps during shift. Safety measures in place.
[2021-12-07 07:30] VITALS: BP 129/48
[2021-12-07] MEDS: CARISOPRODOL 350 MG TABLET PO PRN ×2 (07:41→20:16)
[2021-12-07] MEDS: DIVALPROEX 250 MG TABLET.DR PO SCH ×3 (09:00→16:09)
[2021-12-07] MEDS: risperiDONE 2 MG TABLET PO SCH ×3 (09:00→16:09)
[2021-12-07] MEDS: NICOTINE 21 MG/24HR PATCH TD SCH (09:18)
[2021-12-07] MEDS: ASPIRIN 81 MG TAB.CHEW PO SCH (09:19)
[2021-12-07] MEDS: ENSURE WITH FIBER 237 ML LIQUID (CHOCOLATE) PO SCH ×3 (09:20→16:09)
[2021-12-07] MEDS: BACLOFEN 10 MG TABLET PO SCH ×2 (09:21→16:08)
[2021-12-07] MEDS: NITROFURANTOIN/NITROFURAN MAC 100 MG CAPSULE PO SCH ×2 (09:21→20:16)
[2021-12-07] MEDS: FAMOTIDINE 20 MG TABLET PO SCH (09:22)
[2021-12-07] MEDS: AMLODIPINE 10 MG TABLET PO SCH (09:23)
[2021-12-07] MEDS: MULTIVITAMINS,THERAPEUTIC TABLET PO SCH (09:24)
[2021-12-07] MEDS: LISINOPRIL 10 MG TABLET PO SCH (09:25)
[2021-12-07 16:00] VITALS: BP 119/50
[2021-12-07] MEDS: HYDROCODONE/APAP 10-325 MG TABLET PO PRN (16:08)
[2021-12-07 20:00] VITALS: BP 108/45
[2021-12-07] MEDS: MELATONIN 3 MG TABLET PO SCH (20:16)
[2021-12-07] MEDS: ATORVASTATIN 20 MG TABLET PO SCH (20:16)
[2021-12-07] MEDS: MAG HYDROX/AL HYDROX/SIMETH 30 ML LIQUID UDC PO PRN (21:57)
[2021-12-07] MEDS: LORAZEPAM 1 MG TABLET PO PRN (22:48)
--- NOTE | 2021-12-07 23:55 | NUR ---
received patient in the hallway, sitting in a wheelchair. she is noted A/O x 3. visible in the unit. she is able to transfer and move around herself via wheelchair. patient is hyperverbal. she is constantly asking staff for multiple things, form food, ice water, saltines, gowns, pain medication, valium, phone, TV remote control. she is noted intrusive with a poor insight and judgment into her admission to MHU. patient requires multiple redirections and to set limits with her. no aggressive combative bx noted at this time. V/S stable. patient was given PO fluids and snacks. she is reassured for her safety. safety and fall precaution in place. will continue to monitor.
[2021-12-08] MEDS: HYDROCODONE/APAP 10-325 MG TABLET PO PRN ×3 (01:18→19:48)
[2021-12-08] MEDS: CARISOPRODOL 350 MG TABLET PO PRN ×2 (05:43→15:44)
--- NOTE | 2021-12-08 06:19 | NUR ---
Patient slept for approx 2hrs through the night. She refused a PO PRN pill for insomnia. She continue hyperverbal, attention seeker and intrusive. will continue to monitor.
[2021-12-08 08:15] VITALS: BP 143/44
[2021-12-08] MEDS: NITROFURANTOIN/NITROFURAN MAC 100 MG CAPSULE PO SCH ×2 (08:37→20:30)
[2021-12-08] MEDS: FAMOTIDINE 20 MG TABLET PO SCH (08:37)
[2021-12-08] MEDS: MULTIVITAMINS,THERAPEUTIC TABLET PO SCH (08:41)
[2021-12-08] MEDS: NICOTINE 21 MG/24HR PATCH TD SCH (08:41)
[2021-12-08] MEDS: risperiDONE 2 MG TABLET PO SCH ×3 (08:41→18:27)
[2021-12-08] MEDS: LISINOPRIL 10 MG TABLET PO SCH (08:41)
[2021-12-08] MEDS: AMLODIPINE 10 MG TABLET PO SCH (08:46)
[2021-12-08] MEDS: DIVALPROEX 250 MG TABLET.DR PO SCH ×3 (08:46→18:28)
[2021-12-08] MEDS: ASPIRIN 81 MG TAB.CHEW PO SCH (08:49)
[2021-12-08] MEDS: BACLOFEN 10 MG TABLET PO SCH ×2 (08:49→18:28)
[2021-12-08] MEDS: ENSURE WITH FIBER 237 ML LIQUID (CHOCOLATE) PO SCH ×3 (08:57→17:39)
--- NOTE | 2021-12-08 12:34 | NUR ---
Gps/Electrical Power Station Technician- Refused to take her depakote as well as risperidone, she does not want to take it during the day per patient, and claimed she only take psych.meds. during the night, informed and reviewed with patient reasons why Doctor scheduled her meds. during the day. Showered patient with min. assist. complained of itching down in her surendra-area, encouraged good hygiene, used soap well, relieved of itching after her good shower. Stayed up in the dinning room during her lunch. Patient interacting fairly well with the Rec. therapist .
[2021-12-08] MEDS: MAG HYDROX/AL HYDROX/SIMETH 30 ML LIQUID UDC PO PRN (14:35)
[2021-12-08 16:20] VITALS: BP 137/66
[2021-12-08 19:55] VITALS: BP 146/72
[2021-12-08] MEDS: LORAZEPAM 1 MG TABLET PO PRN (20:30)
[2021-12-08] MEDS: ATORVASTATIN 20 MG TABLET PO SCH (20:30)
[2021-12-08] MEDS: MELATONIN 3 MG TABLET PO SCH (20:30)
[2021-12-09] MEDS: MAG HYDROX/AL HYDROX/SIMETH 30 ML LIQUID UDC PO PRN (00:07)
--- NOTE | 2021-12-09 04:16 | NUR ---
Patient received in her w/c wheeling herself in and out of the room, requesting for her NORCO as it is due for her back pain 12/15. Shel[place] given. Patient A&Ox2, no apparent distress noted. Patient remains needy, demanding and manipulative. Set matter of facts limits. Firm attitude observed. Patient responding to internal stimuli. Oriented to reality. Patient re-directable. Compliant with medications. All needs met and attended. Ativan given d/t anxiety. [place]ton effective 08/15 pain. Patient slept intermittently during shift.
[2021-12-09] MEDS: CARISOPRODOL 350 MG TABLET PO PRN ×2 (05:29→19:00)
[2021-12-09] MEDS: HYDROCODONE/APAP 10-325 MG TABLET PO PRN ×2 (07:41→20:26)
[2021-12-09] MEDS: LORAZEPAM 1 MG TABLET PO PRN (07:41)
[2021-12-09] MEDS: DIVALPROEX 250 MG TABLET.DR PO SCH (08:06)
[2021-12-09] MEDS: BACLOFEN 10 MG TABLET PO SCH ×2 (08:06→16:23)
[2021-12-09] MEDS: AMLODIPINE 10 MG TABLET PO SCH (08:06)
[2021-12-09] MEDS: LISINOPRIL 10 MG TABLET PO SCH (08:06)
[2021-12-09] MEDS: FAMOTIDINE 20 MG TABLET PO SCH (08:07)
[2021-12-09] MEDS: MULTIVITAMINS,THERAPEUTIC TABLET PO SCH (08:07)
[2021-12-09] MEDS: risperiDONE 2 MG TABLET PO SCH ×3 (08:07→16:22)
[2021-12-09] MEDS: NICOTINE 21 MG/24HR PATCH TD SCH (08:07)
[2021-12-09] MEDS: NITROFURANTOIN/NITROFURAN MAC 100 MG CAPSULE PO SCH ×2 (08:10→20:58)
[2021-12-09] MEDS: ASPIRIN 81 MG TAB.CHEW PO SCH (08:22)
[2021-12-09] MEDS: ENSURE WITH FIBER 237 ML LIQUID (CHOCOLATE) PO SCH ×3 (08:22→16:23)
[2021-12-09] MEDS ORDERED: DIVALPROEX SPRINKLE 125 MG CAP.SPRINK PO ONE (09:30)
[2021-12-09 09:43] VITALS: BP 125/47
--- NOTE | 2021-12-09 14:12 | NUR ---
GPS: Nursing Notes: Destructive Behavior To Others: Patient is awake and responding to her name, labile, unpredictable behavior, violent outburst without provocation, verbal abusive toward staff, threatening staff, overly demanding, loud and pressured speech, overly disruptive by shouting profanities toward staff and peers, disorganized, poor anger management, poor impulse control, unable to formulate a viable plan for self care, continue with treatment plan.
[2021-12-09 16:32] VITALS: BP 98/51
[2021-12-09 20:35] VITALS: BP 90/52
[2021-12-09] MEDS: ATORVASTATIN 20 MG TABLET PO SCH ×2 (20:58→21:00)
[2021-12-09] MEDS: DIVALPROEX SPRINKLE 125 MG CAP.SPRINK PO SCH ×2 (20:58→21:30)
[2021-12-09] MEDS: MELATONIN 3 MG TABLET PO SCH ×2 (20:58→21:00)
[2021-12-10] MEDS: ONDANSETRON ODT 4 MG TAB.RAPDIS SL PRN ×3 (00:01→10:31)
[2021-12-10] MEDS: LORAZEPAM 1 MG TABLET PO PRN (01:57)
--- NOTE | 2021-12-10 04:40 | NUR ---
NSG/GPS Patient complained of having nausea, emesis times three, HS medication held, physician director of instruction contacted. Prn for nausea obtained and administered as ordered with effective outcome. PRN for anxiety administered at 0200, patient then asleep until approx. 0430 patient reported emesis, nurse observed coffee ground like emesis, contacted physician director of instruction. Fermín RADIOGRAPHER CARDIAC CATHETERIZATION ordered Labs, as well as administer prn for nausea and continue observation. Will continue to follow plan of care and provide a safe environment.
[2021-12-10 05:44] LABS: HEMATOCRIT 29.4 % (31.2-41.9); MEAN CORPUSCULAR HEMOGLOBIN 33.9 uug (24.7-32.8); MEAN CORPUSCULAR VOLUME 101.4 fL (75.5-95.3); PLATELET COUNT (AUTO) 207 K/uL (179-408)
[2021-12-10 05:49] LABS: CARBON DIOXIDE 35 mmol/L (21-32); CHLORIDE 99 mmol/L (98-107); CREATININE 1.2 mg/dL (0.6-1.3); GLUCOSE 125 mg/dL (74-106); POTASSIUM 5.2 mmol/L (3.5-5.1); UREA NITROGEN, BLOOD 67 mg/dL (7-18)
[2021-12-10 07:30] VITALS: BP 102/45
[2021-12-10] MEDS: AMLODIPINE 10 MG TABLET PO SCH (09:00)
[2021-12-10] MEDS: DIVALPROEX SPRINKLE 125 MG CAP.SPRINK PO SCH (09:00)
[2021-12-10] MEDS: ASPIRIN 81 MG TAB.CHEW PO SCH (09:00)
[2021-12-10] MEDS: LISINOPRIL 10 MG TABLET PO SCH (09:00)
[2021-12-10] MEDS: BACLOFEN 10 MG TABLET PO SCH (09:00)
[2021-12-10] MEDS: risperiDONE 2 MG TABLET PO SCH ×2 (09:00→12:48)
[2021-12-10] MEDS: FAMOTIDINE 20 MG TABLET PO SCH ×2 (09:00→10:33)
[2021-12-10] MEDS: MULTIVITAMINS,THERAPEUTIC TABLET PO SCH (09:00)
[2021-12-10] MEDS: ENSURE WITH FIBER 237 ML LIQUID (CHOCOLATE) PO SCH ×2 (09:39→12:47)
[2021-12-10] MEDS: NICOTINE 21 MG/24HR PATCH TD SCH (09:40)
[2021-12-10 11:19] LABS: HEMATOCRIT 25.8 % (31.2-41.9)
--- NOTE | 2021-12-10 11:36 | NUR ---
GPS: Nursing Notes: Abnormal Lab: Dr. Terry informed of patient's H&H going down, and patient is vomiting coffee brown vomitus several times, Dr. Terry ordered for patient to be transfer to Med. Surg, Nursing Humanities Instructor - Fabienne informed to get a Med. Surg. room number to transfer the patient, patient to be NPO per Dr. Aguirre's order, continue to monitor for safety, continue with treatment plan.
--- NOTE | 2021-12-10 13:24 | NUR ---
GPS: Nursing Notes: To Give Report To Nurse: Staff to give report to admitting nurse - September, but per veterinary receptionist the admitting nurse is busy with COVID 19 patients to back MHU when available to talk to staff, continue to monitor for safety, continue with treatment plan.
--- NOTE | 2021-12-10 14:20 | NUR ---
GPS: Nursing Notes: MHU Aoc Director Intelligence Officer Informed of Discharge: Staff informed Krysta that the admitting nurse not calling MHU staff for report, Krysta stated that she is going to talk the Med. Surg. gas operation manager and would call staff back, continue to monitor for safety, continue with treatment plan.
[2021-12-10 14:40] VITALS: BP 105/53
--- NOTE | 2021-12-10 15:40 | NUR ---
GPS: Nursing Notes: Calling Med. Surg. Again: Staff called Med. Surg. to give report to admitting nurse - September, but per switchboard operator receptionist, admitting nurse - September continue in isolation taking care of COVID 19 patient, but room # 321 is ready for the patient, informed switchboard operator receptionist that staff is going to discharge patient to room # 321 with 1:1 sitter for safety, and for admitting nurse to call as soon as possible to staff, U retirement administrator Krysta informed of discharge.
--- NOTE | 2021-12-10 15:47 | NUR ---
GPS: Nursing Notes: Discharge Notes: Per Dr. Terry, discharge patient to Med. Surg. with Dx: Upper GI Bleeding, Fabienne, nursing wireworker supervisor assigned room # 321, Dr. Schaeffer to continue 1047, patient went to room 321 with 1:1 sitter for safety and discharge package for admitting nurse - Stephanie RN, admitting nurse to follow up with retail field supervisor and psychiatrist as soon as possible, also, discharge orders given to admitting ER.
[2021-12-10] MEDS ORDERED: PANTOPRAZOLE SODIUM 40 MG VIAL IV SCH (16:00)
--- NOTE | 2021-12-10 16:02 | NUR ---
IVORY Transfer Note: Per nursing, Dr. Terry discharged the pt to Med Surg due to Upper GI Bleeding. Dr. Schaeffer continued the 5250 hold. Pt was brought from [facility] located at [address] [place] [id number] ([phone]). IVORY spoke with the nursing c d area supervisor, Rozina at the facility who states that pt is welcome back upon discharge. Pt does not have any family contact at this time.
--- NOTE | 2021-12-10 17:42 | NUR ---
GPS: Nursing Notes: Med. Surg Staff Called For Report: Med. Surg. Nurse - Meagan, assisting September, called to get report, endorsed admitting nurse to call Dr. Terry for further orders - to get order for Protonix IV, patient NPO per Dr. Terry. Also, staff endorsed to admitting nurse to call Dr. Schaeffer for further orders, informed admitting nurse, per Dr. Schaeffer to continue with 5250 status.
== END 2021-12-10 16:00 | disposition short-term general hospital (02) | DRG 885 ==
LOC: ER 14:11 → GPS 17:29
PROVIDERS: ADMIT Psychiatry & Neurology Psychiatry; ATTEND Internal Medicine
DX: F20.0 Paranoid schizophrenia (principal); N39.0 Urinary tract infection, site not specified; K92.2 Gastrointestinal hemorrhage, unspecified; D62 Acute posthemorrhagic anemia; F17.200 Nicotine dependence, unspecified, uncomplicated; I10 Essential (primary) hypertension; G89.29 Other chronic pain; Z79.82 Long term (current) use of aspirin; Z20.822 Contact with and (suspected) exposure to COVID-19
CPT/HCPCS: 36415; 80164; 85018; 85025; 87086; 97161; A4663; J2060; J2358; J3490; Q0162

== ENCOUNTER 2021-12-10 15:48 | Inpatient (IN) | payer MEDICARE, OTHER ==
[~2021-12-10] VITALS: Ht 154.9 cm; Wt 47.6 kg
[~2021-12-10 15:48] MED LIST changes: +ACET-2154 PO; +AMLO10TA59 PO; -AMLO5TAB4 PO; +ASPI81TA31 PO; +ATOR20TA PO; +BACL10TA PO; +BISA10SU61 RC; +BISM262T15 PO; +FAMO40TA7 PO; -FLEXERIL PO; -HYDR-3326 PO; +HYDR-3980 PO; -HYDR25TA4 PO; -IBUP-1954 PO; +LISI10TA29 PO; +MAGN400O6 PO; +MULT-594 PO; +NA P133E RC; -NITR100C11 PO; +TEMA15CA PO
--- NOTE | 2021-12-10 16:00 | NUR ---
Admitted patient in med surg floor under the care of Dr Terry, patient alert 2/3, on 14 day hold till 12/20/21 under the care of Dr Schaeffer, patient reported that been vomiting coffee ground color vomitus x 5 since last night, and hgh level is decreasing, also BUN of 67, also has left heel open wound, and left lower leg wound, Patient on 1;1 sitter due to hold, able to make needs known, cooperative at this time, cont to monitor.
[2021-12-10 16:05] VITALS: BP 117/49
[2021-12-10] MEDS ORDERED: MAGNESIUM HYDROXIDE 30 ML LIQUID UDC PO PRN (17:00)
[2021-12-10] MEDS ORDERED: PANTOPRAZOLE SODIUM IV 80 MG in IV DEXTROSE 5% 100 ML IV ONE (17:00)
[2021-12-10] MEDS ORDERED: ONDANSETRON 4 MG/2 ML VIAL IV PRN (17:00)
[2021-12-10] MEDS ORDERED: REMEDY ESSENTIAL ZINC PASTE 113 GM TP PRN (17:00)
[2021-12-10] MEDS ORDERED: PANTOPRAZOLE SODIUM IV 80 MG in IV DEXTROSE 5% 500 ML IV SCH (17:00)
[2021-12-10] MEDS: PANTOPRAZOLE SODIUM 40 MG VIAL IV SCH ×2 (17:24→20:44)
[2021-12-10] MEDS: IV D5 1/2 NS 1000 ML 1,000 ML IV PRN (17:47)
[2021-12-10 19:32] VITALS: BP 103/64
[2021-12-10] MEDS: ACETAMINOPHEN 325 MG TABLET PO PRN (20:45)
--- NOTE | 2021-12-10 22:15 | NUR ---
Notify Dr Masterson that patient has 8/10 back and abdominal pain, with order.
[2021-12-10] MEDS: MORPHINE SULFATE 2 MG/1 ML DISP.SYRIN IV PRN (22:50)
[2021-12-10 22:59] VITALS: BP 118/55
[2021-12-10 23:11] VITALS: BP 100/55
[2021-12-10 23:29] VITALS: BP 111/60
--- NOTE | 2021-12-10 23:30 | NUR ---
Patient alert oriented, transfusing 1 unit PRBC tolerate well, no adverse reaction noted, cont to monitor.
[2021-12-11] MEDS: ZOLPIDEM 5 MG TABLET PO PRN ×2 (00:06→22:00)
[2021-12-11 00:30] VITALS: BP 134/58
[2021-12-11 02:16] VITALS: BP 103/55
--- NOTE | 2021-12-11 02:18 | NUR ---
Transfused 1 unit PRBC tolerate well, no adverse reaction noted, cont to monitor.
[2021-12-11 05:29] VITALS: BP 121/52
[2021-12-11] MEDS: MORPHINE SULFATE 2 MG/1 ML DISP.SYRIN IV PRN (06:25)
[2021-12-11 06:33] LABS: BILIRUBIN,TOTAL 0.7 mg/dL (0.2-1.0); CREATININE 0.9 mg/dL (0.6-1.3); MAGNESIUM 2.2 mg/dL (1.8-2.4); PHOSPHOROUS 4.1 mg/dL (2.5-4.9); POTASSIUM 4.6 mmol/L (3.5-5.1); TOTAL PROTEIN, SERUM 6.3 g/dL (6.4-8.2)
[2021-12-11 06:37] LABS: THYROID STIMULATING HORMONE 0.216 mIU/mL (0.358-3.740)
[2021-12-11 07:29] LABS: HEMATOCRIT 27.8 % (31.2-41.9); MEAN CORPUSCULAR VOLUME 95.5 fL (75.5-95.3); PLATELET COUNT (AUTO) 158 K/uL (179-408)
[2021-12-11] MEDS: HYDROCODONE/APAP 5-325MG TABLET PO PRN ×3 (08:56→21:46)
[2021-12-11] MEDS: PANTOPRAZOLE SODIUM 40 MG VIAL IV SCH ×2 (08:56→20:11)
[2021-12-11] MEDS ORDERED: LORAZEPAM 1 MG TABLET PO PRN (09:30)
--- NOTE | 2021-12-11 10:48 | NUR ---
Pt is a/o x 3-4, cooperative with care. Pt on 5250 hold that is up on 12/20, has been seen by Dr. Schaefefr. Pt SpO2 89% on room air, placed pt on 3L nasal cannula, SpO2 increased to 98%. Will monitor and titrate as tolerated. Pt has a 1 to 1 sitter at bedside.
--- NOTE | 2021-12-11 11:54 | NUR ---
WOUND CARE CONSULT; PT PRESENTS WITH HEALED AREA TO LEFT LOWER LEG, LEFT HEEL CALLUS AND SACRAL SCAR, PRESENT ON ADMISSION. PT IS INDEPENDENT WITH BED MOBILITY. SITTER AT BEDSIDE.
[2021-12-11] MEDS: IV D5 1/2 NS 1000 ML 1,000 ML IV PRN (15:16)
--- NOTE | 2021-12-11 19:30 | NUR ---
Received pt awake, alert and orientedx3. Pt in no acute distress. Iv intact. Sitter at bedside for safety. Pt have episodes of agitation. Pt needs reorientation. Will continue to monitor.
[2021-12-11 20:00] VITALS: BP 129/70
[2021-12-11] MEDS: ACETAMINOPHEN 325 MG TABLET PO PRN (20:13)
[2021-12-11] MEDS ORDERED: risperiDONE 2 MG TABLET PO SCH (21:00)
--- NOTE | 2021-12-11 22:30 | NUR ---
Pt given Ambien 5mg prn at 2200H as per pt request. Pt tolerated it well.Pt given Dougherty 5-325 mg at 2146H prn for pain. Pt tolerated it well. Pt norco effective after 30 minutes. Will continue to monitor.
--- NOTE | 2021-12-12 | NUR ---
Pt given Ativan at 2304H for anxiety. Pt tolerated it well. After 30 minutes pt calmer .Pt in no acute distress. Will continue to monitor
--- NOTE | 2021-12-12 06:01 | NUR ---
Pt in no acute distress. Prescribed medication given and pt tolerated it well. Sitter at bedside for safety. Pt easily agitated. Pt refused to be hooked in the iv fluids. Pt on room air. Vital signs within normal limit. Safety and comfort provided. Will continue to endorse to incoming nurse for continuity of care.
[2021-12-12 08:30] VITALS: BP 105/57
[2021-12-12] MEDS: PANTOPRAZOLE SODIUM 40 MG VIAL IV SCH (08:33)
[2021-12-12] MEDS: HYDROCODONE/APAP 5-325MG TABLET PO PRN (08:33)
--- NOTE | 2021-12-12 12:03 | NUR ---
Pt tolerated full liquid diet well, advanced diet to soft diet. Pt has not had another emesis or episode of nausea. Plan is to discharge and transfer back to psych unit.
--- NOTE | 2021-12-12 13:11 | NUR ---
pt is beiong discharged and transferred to MHU. Called and gave report to Ele KELLY receiving pt in room 141-A. Pt is aware and agreeable of transfer. IV and ID bands removed. Pt does not appear in acute distress. no complaints of pain at this time. All discharge education and materials given to patient.
== END 2021-12-12 13:39 | DRG 369 ==
LOC: MEDSURG3 15:48
PROVIDERS: ADMIT Internal Medicine; ATTEND Internal Medicine
PROC: 30233N1 Transfusion of Nonautologous Red Blood Cells into Peripheral Vein, Percutaneous Approach (ICD-10-PCS; principal; 2021-12-10)
DX: K22.6 Gastro-esophageal laceration-hemorrhage syndrome (principal); D62 Acute posthemorrhagic anemia; F20.0 Paranoid schizophrenia; G89.29 Other chronic pain; F29 Unspecified psychosis not due to a substance or known physiological condition; Z87.440 Personal history of urinary (tract) infections
CPT/HCPCS: 36415; 83735; 84100; 84443; 85025; 86850; 86900; 86901; 86920; A4663; C9113; G0378; J2270; P9016

== ENCOUNTER 2021-12-12 14:45 | Inpatient (IN) | payer MEDICARE, OTHER ==
[~2021-12-12] VITALS: Ht 154.9 cm; Wt 47.2 kg
--- NOTE | 2021-12-12 14:00 | NUR ---
Gps/Road Boss- Received report from Leslee Guallpa (M/S) . Received patient via wheel chair , anxious, alert, oriented x 3. Speech clear , slurred at times, encouraged to talk slowly. Denies S.I./ no H.I. Patient has no belongings when she came down from third floor. Patient already of 14 day hold , up on 12/20/21. .Patient anxious, needy , constantly redirected . [place] self around the unit. Noted demanding behavior. Oriented to unit settings, routine admission care dome.
[2021-12-12 15:00] VITALS: BP 138/64
--- NOTE | 2021-12-12 15:58 | NUR ---
Gps/Canopy Stringer- Dr Graeme Terry was texted by Teleprinter Installer Roger, requested to reconcile medications. patient was was requesting pain med. for her mid back pain., waiting for orders
[2021-12-12 19:57] VITALS: BP 120/49
[2021-12-12] MEDS ORDERED: MAGNESIUM HYDROXIDE 30 ML LIQUID UDC PO PRN (20:30)
[2021-12-12] MEDS ORDERED: ACETAMINOPHEN 325 MG TABLET PO PRN (20:30)
[2021-12-12] MEDS: HYDROCODONE/APAP 10-325 MG TABLET PO PRN (21:32)
[2021-12-12] MEDS: ATORVASTATIN 20 MG TABLET PO SCH (21:55)
[2021-12-12] MEDS: ZOLPIDEM 5 MG TABLET PO PRN (21:56)
--- NOTE | 2021-12-12 22:30 | NUR ---
Dr Terry was called via [facility], for med reconciliation, including [place] for pain. Pt received [place] at 2131, and now reports good relief.
--- NOTE | 2021-12-13 04:56 | NUR ---
Received up in wheel chair, needy and demanding at times. Needs frequent redirection. PRN Ambien given for insomnia, at 2135, which was ineffective. Pt remains demanding and verbally abusive. Firm limits set on behavior. Went to sleep around 2 AM, and continues to rest. No distress noted.
[2021-12-13] MEDS: HYDROCODONE/APAP 10-325 MG TABLET PO PRN ×3 (05:56→18:56)
[2021-12-13] MEDS: PANTOPRAZOLE SODIUM 40 MG TABLET.DR PO SCH ×2 (06:07→16:30)
[2021-12-13 07:56] VITALS: BP 142/49
[2021-12-13] MEDS: AMLODIPINE 10 MG TABLET PO SCH (08:50)
[2021-12-13] MEDS: LISINOPRIL 10 MG TABLET PO SCH (08:50)
--- NOTE | 2021-12-13 09:22 | NUR ---
ATTESTATION: Concetta Carr attest to the accuracy of the psychosocial done on December 06, 2021. On the admission for December 06, 2021, the patient was admitted to [facility], she was living [place] [address] ([phone]). During admission of December 06, 2021, pt. appeared to be very confused and disorganized. Pt appeared with unclear, hyperverbal speech. Pt appeared disheveled and unkempt. During this time, pt. was brought in due to hold stating pt is a danger to others and gravely disabled adult. Per hold, pt presented with increased agitation, aggression, and fighting with staff. Upon discharge on December 10, 2021, patient was discharged to Medical Floor at [facility] due to a an Upper GI bleed per Dr. Terry. Pt does not have any family contact. Patient was readmitted to [facility] on December 12, 2021. Pt is alert and oriented x1(name). Pt continues to appear with confused thought process, unclear speech, disruptive behavior and destructive behavior. Pt was stealing food from other patients, yelling at other patients, and grabbing patients walkers and their arms in the hallway. During this writers evaluation, pt. appeared to be hyperverbal with unclear speech, required constant redirection, and confused thought process. Pt unable to have a proper conversation due to constant redirection needed. Pt unable to focus and appears to be mentally preoccupied. geriatric social worker will contact [place] [address] ([phone]) to reconfirm pts acceptance back with Joseph at the facility upon discharge. Pt does not have family contact.
[2021-12-13] MEDS: risperiDONE 1 MG TABLET PO SCH ×3 (09:30→21:00)
[2021-12-13] MEDS: ENSURE ENLIVE (VAN) 240 ML LIQUID PO SCH ×2 (12:47→16:30)
[2021-12-13 16:13] VITALS: BP 110/51
[2021-12-13 20:28] VITALS: BP 123/52
[2021-12-13] MEDS: LORAZEPAM 0.5 MG TABLET PO PRN (20:42)
[2021-12-13] MEDS: ATORVASTATIN 20 MG TABLET PO SCH (20:42)
[2021-12-13] MEDS: ZOLPIDEM 5 MG TABLET PO PRN (22:19)
[2021-12-14] MEDS: HYDROCODONE/APAP 10-325 MG TABLET PO PRN ×4 (00:38→19:48)
--- NOTE | 2021-12-14 02:01 | NUR ---
Patient continues to be non compliant with medication. Education and encouragement was provided but the patient refused her Psychiatric AM and PM doses. The patient is argumentative, acts out when she does not get what she wants. Multiple and frequent requests for food and items throughout the shift. This patent tries to staff slit and has no regard for the unit rules. Safety Stratiges are in place. Continuing to monitor for compliance and behavior escalation at this time.
[2021-12-14] MEDS: LORAZEPAM 0.5 MG TABLET PO PRN (02:12)
[2021-12-14] MEDS: PANTOPRAZOLE SODIUM 40 MG TABLET.DR PO SCH ×2 (06:12→16:31)
[2021-12-14 07:38] VITALS: BP 130/67
[2021-12-14] MEDS: risperiDONE 1 MG TABLET PO SCH ×3 (08:24→20:26)
[2021-12-14] MEDS: ENSURE ENLIVE (VAN) 240 ML LIQUID PO SCH ×3 (08:24→16:31)
[2021-12-14] MEDS: LISINOPRIL 10 MG TABLET PO SCH (08:24)
[2021-12-14] MEDS: AMLODIPINE 10 MG TABLET PO SCH (08:24)
--- NOTE | 2021-12-14 09:45 | NUR ---
PT RECEIVED PROPELLING SELF THROUGHOUT UNIT ON W/C. NEEDY AND MANIPULATIVE. FREQUENTLY ASKING FOR DIFFERENT THINGS (WATER, ICE, PAIN MEDICATIONS, FOOD, ETC). COMPLIANT WITH MEDICATIONS WITH EXTENSIVE REINFORCEMENT. PT WOULD ONLY TAKE PSYCHIATRIC MEDICATION WITH PSYCHIATRIST PRESENT. NO AGGRESSIVE OR COMBATIVE BEHAVIOR NOTED AT THIS TIME.
[2021-12-14] MEDS: MAG HYDROX/AL HYDROX/SIMETH 30 ML LIQUID UDC PO PRN (10:25)
[2021-12-14 15:54] VITALS: BP 100/46
[2021-12-14] MEDS: ATORVASTATIN 20 MG TABLET PO SCH (20:26)
[2021-12-14 20:46] VITALS: BP 105/52
[2021-12-14] MEDS: ZOLPIDEM 5 MG TABLET PO PRN (22:48)
[2021-12-15] MEDS: HYDROCODONE/APAP 10-325 MG TABLET PO PRN ×4 (02:22→21:00)
--- NOTE | 2021-12-15 03:08 | NUR ---
Patient has been argumentative, manipulative, angry and verbally abusive. When this communications writer gave the patient her PM Psychiatric medications, the patient pretended to swallow them. When this communications writer took the water cup from the patient, the medications were in the bottom of the cup. Same behavior as the previous 2 nights. Patient constantly at the station asking for things, food, pain medications ETC.. not respecting boundaries or rules and acting out when not appeased. Safety Strategies are in place. Continuing to monitor for behavior escalation and for compliance.
[2021-12-15] MEDS: PANTOPRAZOLE SODIUM 40 MG TABLET.DR PO SCH ×2 (06:00→17:39)
[2021-12-15 08:30] VITALS: BP 158/56
[2021-12-15] MEDS: risperiDONE 1 MG TABLET PO SCH ×2 (08:53→20:36)
[2021-12-15] MEDS: LORAZEPAM 0.5 MG TABLET PO PRN (08:54)
[2021-12-15] MEDS: AMLODIPINE 10 MG TABLET PO SCH (08:55)
[2021-12-15] MEDS: LISINOPRIL 10 MG TABLET PO SCH (08:55)
[2021-12-15] MEDS: ENSURE ENLIVE (VAN) 240 ML LIQUID PO SCH ×3 (09:10→17:39)
[2021-12-15 15:21] VITALS: BP 125/45
--- NOTE | 2021-12-15 18:19 | NUR ---
patient needy and intrusive in and out of dayroom brendan hallway requesting [employer] FOR BACK PAIN NEEDS LIMITING SETTING, eating and hydrating qs.
[2021-12-15] MEDS: TRAZODONE 50 MG TABLET PO SCH (20:36)
[2021-12-15] MEDS: ATORVASTATIN 20 MG TABLET PO SCH (20:37)
[2021-12-15] MEDS: ZOLPIDEM 5 MG TABLET PO PRN (20:37)
[2021-12-15 23:13] VITALS: BP 131/47
[2021-12-16] MEDS: HYDROCODONE/APAP 10-325 MG TABLET PO PRN ×4 (03:03→21:53)
--- NOTE | 2021-12-16 03:57 | NUR ---
GPS: Nursing Notes: Destructive Behavior To Others: Patient is awake and responding to her name, poor impulse control, argumentative, resistant with nursing care, gets easily irritable when redirected, unkempt appearance, resistant with nursing care, episode of hoarding things, using profanities toward staff at times, loud and pressured slurred speech, internally preoccupied, unable to formulate a viable plan for self care, continue to monitor for safety, continue with treatment plan.
[2021-12-16] MEDS: LORAZEPAM 0.5 MG TABLET PO PRN (06:07)
[2021-12-16] MEDS: PANTOPRAZOLE SODIUM 40 MG TABLET.DR PO SCH ×2 (06:07→17:12)
--- NOTE | 2021-12-16 06:40 | NUR ---
GPS: Nursing Notes: Sleeping Hours: Patient was able to sleep 3 hours, Ambien PO PRN was given last night, continue to monitor for safety, continue with treatment plan.
[2021-12-16 07:41] VITALS: BP 109/44
[2021-12-16] MEDS ORDERED: LORAZEPAM 0.5 MG TABLET PO PRN (08:15)
[2021-12-16] MEDS: risperiDONE 1 MG TABLET PO SCH ×2 (08:31→20:30)
[2021-12-16] MEDS: LISINOPRIL 10 MG TABLET PO SCH (08:32)
[2021-12-16] MEDS: AMLODIPINE 10 MG TABLET PO SCH (08:33)
[2021-12-16] MEDS: ENSURE ENLIVE (VAN) 240 ML LIQUID PO SCH ×3 (08:33→17:12)
--- NOTE | 2021-12-16 11:15 | NUR ---
GPS: SEEN PACING ALONG THE HALLWAY. RESISTIVE WITH CARE, ABLE TO TAKE MEDS BUT BE ON GUARD BECAUSE PT SEEN HOLDING ONE MED BUT PT EVENTUALLY TOOK IT AFTER SURVEY AND MAPPING TECHNICIAN CAUGHT PT. ARGUMENTATIVE AT TIMES, HYPERVERBAL, TALKING TO SELF. MUMBLING SPEECH. REQUESTED NORCO FOR CHRONIC LOWER BACK PAIN.
--- NOTE | 2021-12-16 11:42 | NUR ---
Firearms Report: Card Doffer completed and submitted a DOJ firearms report for 5150 a danger to others and grave disability certifications. A copy of report has been placed in patient chart.
--- NOTE | 2021-12-16 15:03 | NUR ---
IVORY Discharge Update: Pt currently resides at [address] [address] ([phone]). IVORY spoke with Amy in admissions at the facility who states that pt is welcome back on Thursday.
[2021-12-16 16:15] VITALS: BP 128/58
--- NOTE | 2021-12-16 18:43 | NUR ---
GPS: PT WITH NO AGITATION NOTED. COMPLIANT WITH MEDS. ABLE TO MAKE NEEDS KNOWN. ENCOURAGED PT TO ATTEND GROUP THERAPY. SEEING PT WHEELING ALONG THE HALLWAY AND TO THE ACTIVITY ROOM. PT ATTENTION SEEKER AT TIMES AND LIKE TO HAVE CONVERSATION WITH PEERS.
[2021-12-16 19:55] VITALS: BP 114/60
[2021-12-16] MEDS: ATORVASTATIN 20 MG TABLET PO SCH (20:30)
[2021-12-16] MEDS: TRAZODONE 50 MG TABLET PO SCH (20:30)
[2021-12-16] MEDS: MELATONIN 3 MG TABLET PO SCH (20:30)
[2021-12-16] MEDS: LORAZEPAM 1 MG TABLET PO PRN (23:20)
[2021-12-16] MEDS: GUAIFENESIN/DEXTROMETHORPHAN 5 ML UDC PO PRN (23:20)
[2021-12-17] MEDS: PANTOPRAZOLE SODIUM 40 MG TABLET.DR PO SCH ×2 (06:14→17:36)
[2021-12-17] MEDS: HYDROCODONE/APAP 10-325 MG TABLET PO PRN ×3 (06:16→18:11)
[2021-12-17 07:30] VITALS: BP 135/52
[2021-12-17] MEDS: risperiDONE 1 MG TABLET PO SCH ×2 (08:27→20:38)
[2021-12-17] MEDS: LISINOPRIL 10 MG TABLET PO SCH (08:28)
[2021-12-17] MEDS: AMLODIPINE 10 MG TABLET PO SCH (08:28)
[2021-12-17] MEDS: ENSURE ENLIVE (VAN) 240 ML LIQUID PO SCH ×3 (08:28→17:35)
[2021-12-17] MEDS: LORAZEPAM 1 MG TABLET PO PRN ×2 (08:43→22:04)
--- NOTE | 2021-12-17 13:43 | NUR ---
GPS: Nursing Notes: Destructive Behavior To Others: Patient is awake and responding to her name, poor impulse control, disorganized, impaired judgment, argumentative, hoarding things at times, gets in and out of therapeutic groups, resistant with nursing care, unkempt appearance, unable to formulate a viable plan for self care, loud and pressured speech, overly disruptive by shouting near the nursing station, attention seeking, redirected during shift, continue to monitor for safety, continue with treatment plan.
[2021-12-17 13:52] LABS: HEMATOCRIT 27.8 % (31.2-41.9); MEAN CORPUSCULAR HEMOGLOBIN 32.4 uug (24.7-32.8); MEAN CORPUSCULAR VOLUME 97.6 fL (75.5-95.3); PLATELET COUNT (AUTO) 200 K/uL (179-408)
[2021-12-17 14:02] LABS: BILIRUBIN,TOTAL 0.1 mg/dL (0.2-1.0); CREATININE 0.9 mg/dL (0.6-1.3); POTASSIUM 4.7 mmol/L (3.5-5.1); TOTAL PROTEIN, SERUM 6.7 g/dL (6.4-8.2)
[2021-12-17 15:37] VITALS: BP 107/41
[2021-12-17] MEDS: GUAIFENESIN/DEXTROMETHORPHAN 5 ML UDC PO PRN (17:34)
[2021-12-17 20:13] VITALS: BP 118/54
--- NOTE | 2021-12-17 20:30 | NUR ---
Received patient in the hallway. she was noted sitting in her wheelchair. She is noted A/O x 2. She is hyperverbal, intrusive, demanding. she requires multiple redirection and unit rule settings. Patient denied SI/HI//AH she is able to CFS. her V/S are stable, patient is in no distress. She was given PO fluids and snacks. She is reassured for her safety; safety and fall precautions are in place. will continue to monitor.
[2021-12-17] MEDS: MELATONIN 3 MG TABLET PO SCH (20:38)
[2021-12-17] MEDS: TRAZODONE 100 MG TABLET PO SCH (20:38)
[2021-12-17] MEDS: ATORVASTATIN 20 MG TABLET PO SCH (20:38)
[2021-12-18] MEDS: GUAIFENESIN/DEXTROMETHORPHAN 5 ML UDC PO PRN (00:42)
[2021-12-18] MEDS: HYDROCODONE/APAP 10-325 MG TABLET PO PRN ×5 (02:27→20:40)
[2021-12-18] MEDS: PANTOPRAZOLE SODIUM 40 MG TABLET.DR PO SCH ×2 (06:31→17:19)
[2021-12-18 07:30] VITALS: BP 123/62
[2021-12-18] MEDS: AMLODIPINE 10 MG TABLET PO SCH (09:18)
[2021-12-18] MEDS: LISINOPRIL 10 MG TABLET PO SCH (09:19)
[2021-12-18] MEDS: risperiDONE 1 MG TABLET PO SCH (09:19)
[2021-12-18] MEDS: ENSURE ENLIVE (VAN) 240 ML LIQUID PO SCH ×3 (09:20→17:41)
[2021-12-18] MEDS: MAG HYDROX/AL HYDROX/SIMETH 30 ML LIQUID UDC PO PRN (11:03)
[2021-12-18] MEDS ORDERED: FUROSEMIDE 20 MG TABLET PO ONE (12:00)
--- NOTE | 2021-12-18 15:27 | NUR ---
Received patient awake in the hallway. A/O X 3 to person, place. Pt. is demanding, needy, hyperverbal with slurred speech, fixated on pain medication. Pt. states "I need coffee, tea, salt, pepper, sugar, blanket, gown, socks right now" "I did not talk to anyone today" "I need TV remote control. I'll not hide it in my wheelchair". "This place is boring" Pt. uses wheelchair, but can ambulate, and even dance when she's not aware that someone is watching her. Pt. is given [place] 10-325 mg at 08:33 and 14:38 for lower back pain rated 8 on the scale of 1 to 10, effective. Pt. is given Maalox 30 ml for upset stomach at 11:03, effective. Pt. is encourage to verbalize concerns. Fall and safety precautions implemented.
[2021-12-18 16:00] VITALS: BP 122/48
[2021-12-18 20:00] VITALS: BP 128/67
[2021-12-18] MEDS: risperiDONE 2 MG TABLET PO SCH (20:40)
[2021-12-18] MEDS: TRAZODONE 100 MG TABLET PO SCH (20:40)
[2021-12-18] MEDS: ATORVASTATIN 20 MG TABLET PO SCH (20:40)
[2021-12-18] MEDS: MELATONIN 3 MG TABLET PO SCH (20:40)
[2021-12-19] MEDS: LORAZEPAM 1 MG TABLET PO PRN ×2 (01:04→10:56)
--- NOTE | 2021-12-19 04:28 | NUR ---
GPS NOTES: Patient remains demanding and needy with care, setting limits applied to patient. Re-directable at times. Unkempt appearance, offered shower but refused. PRN norco and ativan given. Sleeping intermittently. Close monitoring observed. safety strategies in place.
[2021-12-19] MEDS: PANTOPRAZOLE SODIUM 40 MG TABLET.DR PO SCH ×2 (06:02→16:53)
[2021-12-19 07:30] VITALS: BP 118/47
[2021-12-19] MEDS: HYDROCODONE/APAP 10-325 MG TABLET PO PRN ×3 (07:59→20:10)
[2021-12-19] MEDS: risperiDONE 1 MG TABLET PO SCH (09:06)
[2021-12-19] MEDS: LISINOPRIL 10 MG TABLET PO SCH (09:07)
[2021-12-19] MEDS: AMLODIPINE 10 MG TABLET PO SCH (09:07)
[2021-12-19] MEDS: ENSURE ENLIVE (VAN) 240 ML LIQUID PO SCH ×3 (09:08→17:18)
--- NOTE | 2021-12-19 10:20 | NUR ---
Clinical SW Note: Pt stated to psychiatrist, Dr. Schaeffer and this SW that she does not want return to [facility] facility located at [address] [place] [address], [facility] [address] ([phone]). Dr. Schaeffer referred pt to [facility] in [place]. Pt stated she is agreeable to discharge to [facility] on Thursday. SW will send referral.
[2021-12-19] MEDS ORDERED: FUROSEMIDE 40 MG TABLET PO ONE (11:00)
[2021-12-19 15:08] VITALS: BP 106/48
--- NOTE | 2021-12-19 15:08 | NUR ---
Received patient awake in the hallway. A/O X 3 to person, place. Pt. is needy, hyperverbal, fixated on pain medications, takes them on the clock. Pt. states "It's time for my pain medication, it has been 6 hours" Patient is demanding and is always making different requests about food, drinks, and medications. Pt. is given [place] 10-325 mg at 07:59 and 14:03 for lower back pain rated 8 and 9 on the scale of 1 to 10, effective. Emotional support provided. Fall and safety precautions implemented.
[2021-12-19] MEDS: ATORVASTATIN 20 MG TABLET PO SCH (20:45)
[2021-12-19] MEDS: MELATONIN 3 MG TABLET PO SCH (20:46)
[2021-12-19] MEDS: TRAZODONE 100 MG TABLET PO SCH (20:46)
[2021-12-19] MEDS: risperiDONE 2 MG TABLET PO SCH (20:46)
[2021-12-19] MEDS: GUAIFENESIN/DEXTROMETHORPHAN 5 ML UDC PO PRN (22:46)
[2021-12-20] MEDS: HYDROCODONE/APAP 10-325 MG TABLET PO PRN ×4 (02:17→20:40)
[2021-12-20] MEDS: LORAZEPAM 1 MG TABLET PO PRN (05:57)
[2021-12-20] MEDS: PANTOPRAZOLE SODIUM 40 MG TABLET.DR PO SCH ×2 (05:57→17:17)
--- NOTE | 2021-12-20 06:06 | NUR ---
Received to care, mostly compliant, but needy, responding to redirection and limit setting well. Compliant with medications. PRN Stevens given twice during the night, the last time in the 2 o'clock hour, both times for lower back pain, which she reported good relief, both times. Is now intrusive at nurses station, making multiple requests, and requiring frequent redirection. PRN Ativan was given right before 0600, and is awaiting assistance with a shower. No distress noted. Slept fairly well.
[2021-12-20 07:49] VITALS: BP 93/60
--- NOTE | 2021-12-20 08:07 | NUR ---
IVORY SNF Referral: SW faxed patient's referral packet including: History and Physical, Consultation, Progress Notes, Medication List and Labs to the following facilities for review and possible fci placement: [facility] located at [facility] [address] ([phone]) F: [phone]) and spoke with cheikh in marketing.
[2021-12-20] MEDS: risperiDONE 1 MG TABLET PO SCH (08:22)
[2021-12-20] MEDS: ENSURE ENLIVE (VAN) 240 ML LIQUID PO SCH ×3 (08:33→17:18)
[2021-12-20] MEDS: AMLODIPINE 10 MG TABLET PO SCH (08:33)
[2021-12-20] MEDS: LISINOPRIL 10 MG TABLET PO SCH (08:34)
--- NOTE | 2021-12-20 09:55 | NUR ---
SW Discharge Update: Annie in marketing at [facility] located at [address] [facility] [address] ([phone]) F: [phone]) contacted this SW and stated pt is accepted to their facility on Thursday, the 2021. Pt and Dr. Maksim BHATTI are aware and agreeable.
--- NOTE | 2021-12-20 10:41 | NUR ---
WOUND CARE CONSULT: PT PRESENTS WITH VERY SHINY SKIN TO LEFT LOWER LEG AND DRY LESION/SCAB. NO DRAINAGE OR ERYTHEMA NOTED. DPM CONSULT CALLED TO DR HAMPAPUR. BHATTI IN AGREEMENT WITH PLAN OF CARE.
[2021-12-20 16:30] VITALS: BP 119/55
--- NOTE | 2021-12-20 18:52 | NUR ---
patient remains intrusive . needy med seeking behaviors up and down hallway in wheel chair disshelved . continue to monitor for safety
[2021-12-20 20:10] VITALS: BP 133/55
[2021-12-20] MEDS: MELATONIN 3 MG TABLET PO SCH (21:37)
[2021-12-20] MEDS: TRAZODONE 100 MG TABLET PO SCH (21:37)
[2021-12-20] MEDS: ATORVASTATIN 20 MG TABLET PO SCH (21:37)
[2021-12-20] MEDS: risperiDONE 2 MG TABLET PO SCH (21:37)
[2021-12-20] MEDS: GUAIFENESIN/DEXTROMETHORPHAN 5 ML UDC PO PRN (22:51)
[2021-12-21] MEDS: PANTOPRAZOLE SODIUM 40 MG TABLET.DR PO SCH ×2 (06:06→17:53)
[2021-12-21] MEDS: HYDROCODONE/APAP 10-325 MG TABLET PO PRN ×3 (07:52→20:24)
[2021-12-21 08:00] VITALS: BP 137/51
[2021-12-21 08:37] LABS: HEMATOCRIT 29.1 % (31.2-41.9); MEAN CORPUSCULAR HEMOGLOBIN 32.2 uug (24.7-32.8); MEAN CORPUSCULAR VOLUME 97.8 fL (75.5-95.3); PLATELET COUNT (AUTO) 218 K/uL (179-408)
[2021-12-21 08:39] LABS: POTASSIUM 4.4 mmol/L (3.5-5.1)
[2021-12-21] MEDS: LISINOPRIL 10 MG TABLET PO SCH (08:45)
[2021-12-21] MEDS: risperiDONE 1 MG TABLET PO SCH (08:46)
[2021-12-21] MEDS: AMLODIPINE 10 MG TABLET PO SCH (08:46)
[2021-12-21] MEDS: ENSURE ENLIVE (VAN) 240 ML LIQUID PO SCH ×3 (08:46→17:54)
[2021-12-21] MEDS: LIDOCAINE 5% PATCH TD SCH (10:53)
[2021-12-21] MEDS: BENZOCAINE/MENTH/CETYLPYRD LOZENGE MM PRN ×2 (13:37→21:42)
[2021-12-21 16:05] VITALS: BP 91/52
[2021-12-21 20:11] VITALS: BP 95/32
[2021-12-21] MEDS: ATORVASTATIN 20 MG TABLET PO SCH (21:39)
[2021-12-21] MEDS: risperiDONE 2 MG TABLET PO SCH (21:39)
[2021-12-21] MEDS: TRAZODONE 100 MG TABLET PO SCH (21:39)
[2021-12-21] MEDS: GUAIFENESIN/DEXTROMETHORPHAN 5 ML UDC PO PRN (21:42)
[2021-12-21] MEDS: MELATONIN 3 MG TABLET PO SCH (21:53)
[2021-12-21] MEDS: MAG HYDROX/AL HYDROX/SIMETH 30 ML LIQUID UDC PO PRN (22:39)
[2021-12-22] MEDS: HYDROCODONE/APAP 10-325 MG TABLET PO PRN ×4 (02:38→20:57)
--- NOTE | 2021-12-22 03:52 | NUR ---
Patient sleep for few hours, up in the wheelchair asking for different things, needy, med seeking behavior, patient given pain meds as ordered. Patient refused to stay in bed, wheel self in the hallways, patient mumbles, continuously talks disturbing others in their sleep, reorient patient to be quiet, not to make noise, patient refused to follow, remind patient that she needs to follow hospital rules, cont to monitor.
[2021-12-22] MEDS: PANTOPRAZOLE SODIUM 40 MG TABLET.DR PO SCH ×2 (06:37→18:06)
--- NOTE | 2021-12-22 06:44 | NUR ---
Patient awake offered shower but refuse, state after breakfast, endorse to nex shift.
[2021-12-22 07:44] VITALS: BP 98/39
[2021-12-22] MEDS: ENSURE ENLIVE (VAN) 240 ML LIQUID PO SCH ×3 (08:55→17:54)
[2021-12-22] MEDS: LIDOCAINE 5% PATCH TD SCH (08:56)
[2021-12-22] MEDS: AMLODIPINE 10 MG TABLET PO SCH (09:00)
[2021-12-22] MEDS: LISINOPRIL 10 MG TABLET PO SCH (09:00)
[2021-12-22] MEDS: risperiDONE 1 MG TABLET PO SCH (09:06)
[2021-12-22] MEDS: BENZOCAINE/MENTH/CETYLPYRD LOZENGE MM PRN ×3 (12:01→20:30)
[2021-12-22 15:59] VITALS: BP 106/44
[2021-12-22 19:45] VITALS: BP 132/58
[2021-12-22] MEDS: TRAZODONE 100 MG TABLET PO SCH (20:30)
[2021-12-22] MEDS: GUAIFENESIN/DEXTROMETHORPHAN 5 ML UDC PO PRN (20:30)
[2021-12-22] MEDS: MELATONIN 3 MG TABLET PO SCH (20:30)
[2021-12-22] MEDS: ATORVASTATIN 20 MG TABLET PO SCH (20:30)
[2021-12-22] MEDS: risperiDONE 2 MG TABLET PO SCH (20:30)
[2021-12-23] MEDS: HYDROCODONE/APAP 10-325 MG TABLET PO PRN ×2 (04:41→11:06)
[2021-12-23] MEDS: PANTOPRAZOLE SODIUM 40 MG TABLET.DR PO SCH ×2 (06:07→06:36)
[2021-12-23 08:02] VITALS: BP 121/70
[2021-12-23] MEDS: risperiDONE 1 MG TABLET PO SCH (08:41)
[2021-12-23 08:42] VITALS: BP 121/70
[2021-12-23] MEDS: ENSURE ENLIVE (VAN) 240 ML LIQUID PO SCH (08:42)
[2021-12-23] MEDS: LIDOCAINE 5% PATCH TD SCH (08:42)
[2021-12-23] MEDS: LISINOPRIL 10 MG TABLET PO SCH (08:42)
--- NOTE | 2021-12-23 09:25 | NUR ---
IVORY Discharge Note: Pt will be discharged to [facility] located at [address] [place] [address] ([phone]) via ambulance transportation at 11AM. IVORY spoke with Barbara ([phone]) who state they are ready to accept the patient today. Pt is aware and agreeable with discharge plans. Pt is alert and oriented x2(name and location), is unable to plan for self-care at this time; however, is willing to accept care at SNF. Pt does not have any family contact. Pt denies any suicidal or homicidal ideation. Pt will follow-up at the facility with Psychiatrist, Dr. Schaeffer ([phone]) and [facility] [employer], Dr. Guevara. Pt presents with calm mood and congruent affect. PHARMACY: [facility] ([phone]) [address] [place] [address]. Addendum: 12/23/21 at 1107 by IVORY ACEVEDO IVORY Discharge Note Update: Pt will be discharged to [address] [address] ([phone]) via Ambulance transportation at 11AM. IVORY spoke with admin coordinator, Annie ([phone]) at the facility who states they are ready to accept the patient today. Pt is aware and agreeable with discharge plans. Pt is alert and oriented x2(name and location), is unable to plan for self-care at this time; however, is willing to accept care at SNF in room 30. Pt does not have any family contact. Pt denies any suicidal or homicidal ideation. Pt will follow-up at the facility with Psychiatrist, Dr. Schaeffer ([phone]) and [employer], Dr. Guevara. Pt presents with calm mood and congruent affect. Pt will PHARMACY: [facility] ([phone]) [address] [facility] [address].
--- NOTE | 2021-12-23 10:30 | NUR ---
Received patient awake in the hallway. A/O X 2 - 3 to person, place. Pt. is needy, demanding, hyperverbal. Pt. is given [place] 10-325 mg at 11:06 for lower back pain rated 9 on the scale of 1 to 10, effective. Pt. is encourage to verbalize concerns. Fall and safety precautions implemented.
--- NOTE | 2021-12-23 11:07 | NUR ---
IVORY Discharge Note Update: Pt will be discharged to [place] [address] ([phone]) via Ambulance transportation at 11:30AM. IVORY spoke with admin coordinator, Annie ([phone]) at the facility who states they are ready to accept the patient today. Pt is aware and agreeable with discharge plans. Pt is alert and oriented x2(name and location), is unable to plan for self-care at this time; however, is willing to accept care at SNF in room 30. Pt does not have any family contact. Pt denies any suicidal or homicidal ideation. Pt will follow-up at the facility with Psychiatrist, Dr. Schaeffer ([phone]) and Academic Affairs Assistant, Dr. Guevara. Pt presents with calm mood and congruent affect. PHARMACY: [facility] ([phone]) [address] [facility] [address].
[2021-12-23] MEDS: BENZOCAINE/MENTH/CETYLPYRD LOZENGE MM PRN (11:50)
--- NOTE | 2021-12-23 12:24 | NUR ---
Received orders to discharge this patient to [facility] by [facility]. Pt. was agreeable with discharge plans. Pt. just had one jacket and was returned it to patient. Patient left the unit at 12:15 pm. Emotional support provided. Fall and safety precautions implemented.
== END 2021-12-23 12:15 | DRG 885 ==
LOC: GPS 14:45
PROVIDERS: ADMIT Psychiatry & Neurology Psychiatry; ATTEND Nurse Practitioner Acute Care
DX: F20.0 Paranoid schizophrenia (principal); I11.0 Hypertensive heart disease with heart failure; I50.32 Chronic diastolic (congestive) heart failure; D62 Acute posthemorrhagic anemia; E78.5 Hyperlipidemia, unspecified; F39 Unspecified mood [affective] disorder; G89.4 Chronic pain syndrome; K21.9 Gastro-esophageal reflux disease without esophagitis; R04.0 Epistaxis; F29 Unspecified psychosis not due to a substance or known physiological condition; Z87.440 Personal history of urinary (tract) infections; R41.89 Other symptoms and signs involving cognitive functions and awareness; M79.662 Pain in left lower leg; M79.89 Other specified soft tissue disorders; R23.4 Changes in skin texture; Z20.822 Contact with and (suspected) exposure to COVID-19; Z87.19 Personal history of other diseases of the digestive system
CPT/HCPCS: 36415; 71045; 82747; 83550; 85014; 85025; 93307; 97161